=== PATIENT | male | born 1960 | race Caucasian/White ===

== ENCOUNTER 2016-05-15 07:04 | Day surgery (SDC) | payer BC ==
[~2016-05-15 07:04] MED LIST: Lactated Ringers 1,000 ML IV SCH; Lidocaine 1%/Sod Bicarbonate in NS 8.4% 1 ML Syringe IV PRN; Sodium Chloride 0.9% 10 ML Syringe FLUSH PRN
--- NOTE | 2016-05-15 07:20 | PCM.PREANE ---
Preanesthetic Assessment - Anesthesia/Transfusion/Family Hx Anesthesia History: Prior Anesthesia Without Reaction Family History of Anesthesia Reaction: No - Review of Systems General: Other (congestion last week ) Pulmonary: No Symptoms Cardiovascular: No Symptoms Gastrointestinal: No symptoms Neurological: No Symptoms Other: Reports: None - Physical Assessment NPO Status Date: 05/14/16 NPO Status Time: 22:00 Pulse: 67 O2 Sat by Pulse Oximetry: 99 Respiratory Rate: 16 Blood Pressure: 131/87 Temperature: 97.8 C Height: 1.8 m Weight: 77.111 kg ASA Class: 2 Mental Status: Alert & Oriented x3 Airway Class: Mallampati = 2 Dentition: Reports: Normal Dentition Thyro-Mental Finger Breadths: 3 Mouth Opening Finger Breadths: 5 ROM/Head Extension: Full Lungs: Clear to auscultation, Normal respiratory effort Cardiovascular: Regular Rate, Regular Rhythm - Allergies Allergies/Adverse Reactions: Allergies Allergy/AdvReac Type Severity Reaction Status Date / Time No Known Allergies Allergy Verified 05/12/16 11:00 - Blood Blood Available: No - Acknowledgements Anesthesia Type Planned: MAC Pt an Appropriate Candidate for the Planned Anesthesia: Yes Alternatives and Risks of Anesthesia Discussed w Pt/Guardian: Yes Pt/Guardian Understands and Agrees with Anesthesia Plan: Yes PreAnesthesia Questionnaire HEENT History: Reports: Impaired vision Cardiovascular History: Reports: None Respiratory History: Reports: None Genitourinary History: Reports: None PRIMARY CARE PROVIDER History: Reports: None Musculoskeletal History: Reports: Arthritis Neurological History: Reports: None Psychiatric History: Reports: None Endocrine/Metabolic History: Reports: None Hematologic History: Reports: Other (see below) Other Hematologic History: elevated bilirubin, elevated hemoglobin, elevated LDL Immunologic History: Reports: None Oncologic (Cancer) History: Reports: None Dermatologic History: Reports: None - Past Surgical History Head Surgeries/Procedures: Reports: None GI Surgical History: Reports: Cholecystectomy Musculoskeletal Surgical History: Reports: Arthroscopic knee - SUBSTANCE USE Smoking Status *Q: Current Every Day Smoker Tobacco Use Within Last Twelve Months: Snuff/Dip (everyday) Recreational Drug Use History: No - HOME MEDS Home Medications: Home Meds Cetirizine [ZyrTEC] 10 mg PO DAILY PRN 05/12/16 [History] Ibuprofen 200 - 600 mg PO TID PRN 05/12/16 [History] - CURRENT (IN HOUSE) MEDS Current Meds: Current Medications Lactated Ringer's (Ringers, Lactated) 1,000 mls @ 125 mls/hr IV ASDIRECTED SANDRA Stop: 05/15/16 23:00 Lidocaine/Sodium Bicarbonate (Buffered Lidocaine 1% In Ns 8.4%) 0.25 ml IV ONETIME PRN PRN Reason: Prior to IV Start Stop: 05/15/16 18:00 Sodium Chloride (Saline Flush) 10 ml FLUSH ASDIRECTED PRN PRN Reason: Keep Vein Open Stop: 05/15/16 18:00 Preanesthetic Assessment - PHYSICAL ASSESSMENT Height: 1.8 m Weight: 77.111 kg - ALLERGIES Allergies/Adverse Reactions: Allergies Allergy/AdvReac Type Severity Reaction Status Date / Time No Known Allergies Allergy Verified 05/12/16 11:00
[2016-05-15] MEDS ORDERED: Propofol 200 MG/20 ML SDV ONE ×2 (07:52→08:46)
[2016-05-15] MEDS ORDERED: Lidocaine 1% 4 ML ONE (07:53)
--- NOTE | 2016-05-15 08:41 | PCM.OPNOTE ---
- General Post-Op/Procedure Note Date of Surgery/Procedure: 05/15/16 Operative Procedure(s): colonoscopy Findings: 1. posterior anal fissure 2. sigmoid diverticulosis Pre Op Diagnosis: screening Post-Op Diagnosis: 1. posterior anal fissure. 2. sigmoid diverticulosis Anesthesia Technique: MAC, Moderate sedation Primary Surgeon: Hang Agrawal Pathology: none EBL in mLs: 0 Complications: None Condition: Good Free Text/Narrative:: After adequate IV sedation and analgesia was obtained the patient was placed on his left side. 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 Digital rectal examination was unremarkable. Sphincter tone was not too tight. The prostate was grossly normal. A lubricated colonoscope was inserted into the rectum and advanced to the cecum without difficulty. The bowel preparation was excellent. The cecum, right colon, transverse, and descending colons were endoscopically normal with no mass, lesions or inflammatory changes seen. The sigmoid had a few small uncomplicated diverticula. The rectum in both views was unremarkable. Coffee Roaster Helper photographs were taken for the patient and for the record. Air was removed, as I finished the procedure, which he tolerated well. There were no complications.
--- NOTE | 2016-05-15 08:46 | PCM48HPAN ---
Post Anesthesia Note - EVALUATION WITHIN 48HRS OF ANESTHETIC Vital Signs in Normal Range: Yes Patient Participated in Evaluation: Yes Respiratory Function Stable: Yes Airway Patent: Yes Cardiovascular Function Stable: Yes Hydration Status Stable: Yes Pain Control Satisfactory: Yes Nausea and Vomiting Control Satisfactory: Yes Mental Status Recovered: Yes - COMMENTS/OBSERVATIONS Free Text/Narrative:: Uneventful MAC anesthetic
[2016-05-15 09:08] VITALS: BP 116/81
== END 2016-05-15 09:31 | disposition home or self-care (01) ==
LOC: JD.SDS 07:04
PROVIDERS: ATTEND Surgery
DX: Z12.11 Encounter for screening for malignant neoplasm of colon (principal); K57.30 Diverticulosis of large intestine without perforation or abscess without bleeding; Z68.27 Body mass index [BMI] 27.0-27.9, adult; R17 Unspecified jaundice; D58.2 Other hemoglobinopathies; E78.00 Pure hypercholesterolemia, unspecified; Z79.899 Other long term (current) drug therapy; Z96.659 Presence of unspecified artificial knee joint; Z98.890 Other specified postprocedural states; Z72.0 Tobacco use
CPT/HCPCS: 45378; J7120; 00810; J2704

== ENCOUNTER 2016-09-20 08:34 | Day surgery (SDC) | payer BC ==
[~2016-09-20 08:34] MED LIST changes: -Lidocaine 1%/Sod Bicarbonate in NS 8.4% 1 ML Syringe IV PRN; +Lidocaine 1%/Sod Bicarbonate in NS 8.4% 1 ML Syringe PRN
--- NOTE | 2016-09-20 09:37 | PCM.PREANE ---
Preanesthetic Assessment - Anesthesia/Transfusion/Family Hx Anesthesia History: Prior Anesthesia Without Reaction Family History of Anesthesia Reaction: No Intubation History: Unknown - Review of Systems General: No Symptoms Pulmonary: No Symptoms Cardiovascular: No Symptoms Gastrointestinal: No Symptoms Neurological: No Symptoms Other: Reports: None - Physical Assessment NPO Status Date: 09/19/16 NPO Status Time: 18:00 O2 Sat by Pulse Oximetry: 99 Respiratory Rate: 16 Vital Signs: Last Vital Signs Temp 36.3 C 09/20/16 08:45 Pulse 60 09/20/16 08:45 Resp 16 09/20/16 08:45 BP 121/88 09/20/16 08:45 Pulse Ox 99 09/20/16 08:45 Height: 1.78 m Weight: 80.739 kg ASA Class: 2 Mental Status: Alert & Oriented x3 Dentition: Reports: Normal Dentition Thyro-Mental Finger Breadths: 3 Mouth Opening Finger Breadths: 3 ROM/Head Extension: Full Lungs: Clear to Auscultation, Normal Respiratory Effort Cardiovascular: Regular Rate, Regular Rhythm - Allergies Allergies/Adverse Reactions: Allergies Allergy/AdvReac Type Severity Reaction Status Date / Time No Known Allergies Allergy Verified 09/19/16 15:22 - Acknowledgements Anesthesia Type Planned: General Anesthesia Pt an Appropriate Candidate for the Planned Anesthesia: Yes Alternatives and Risks of Anesthesia Discussed w Pt/Guardian: Yes Pt/Guardian Understands and Agrees with Anesthesia Plan: Yes PreAnesthesia Questionnaire HEENT History: Reports: Impaired Vision Cardiovascular History: Reports: None, High Cholesterol Respiratory History: Reports: None Gastrointestinal History: Reports: Other (See Below) Other Gastrointestinal History: increased bilirubin, inguinal hernia Genitourinary History: Reports: None JOB HONER History: Reports: None Musculoskeletal History: Reports: Arthritis Neurological History: Reports: None Psychiatric History: Reports: None Endocrine/Metabolic History: Reports: None Hematologic History: Reports: Other (See Below) Other Hematologic History: elevated bilirubin, elevated hemoglobin, elevated LDL Immunologic History: Reports: None Oncologic (Cancer) History: Reports: None Dermatologic History: Reports: None - Past Surgical History Head Surgeries/Procedures: Reports: None Cardiovascular Surgical History: Reports: None Respiratory Surgical History: Reports: None GI Surgical History: Reports: Cholecystectomy Female Surgical History: Reports: None Male Surgical History: Reports: None Endocrine Surgical History: Reports: None Neurological Surgical History: Reports: None Musculoskeletal Surgical History: Reports: Arthroscopic Knee, Other (See Below) Other Musculoskeletal Surgeries/Procedures:: R knee reconstruction, artificial joint in R thumb - SUBSTANCE USE Smoking Status *Q: Current Every Day Smoker Tobacco Use Within Last Twelve Months: Snuff/Dip Recreational Drug Use History: No - HOME MEDS Home Medications: Home Meds Cetirizine [ZyrTEC] 10 mg PO DAILY PRN 05/12/16 [History] Ibuprofen 200 - 600 mg PO TID PRN 05/12/16 [History] Rosuvastatin Calcium 20 mg PO BEDTIME 09/19/16 [History] - CURRENT (IN HOUSE) MEDS Current Meds: Current Medications Lactated Ringer's (Ringers, Lactated) 1,000 mls @ 125 mls/hr IV ASDIRECTED SANDRA Stop: 09/20/16 23:00 Last Admin: 09/20/16 08:50 Dose: 125 mls/hr Lidocaine/Sodium Bicarbonate (Buffered Lidocaine 1% In Ns 8.4%) 0.25 ml .XX ONETIME PRN PRN Reason: Prior to IV Start Stop: 09/20/16 18:00 Last Admin: 09/20/16 08:50 Dose: 0.25 ml Sodium Chloride (Saline Flush) 10 ml FLUSH ASDIRECTED PRN PRN Reason: Keep Vein Open Stop: 09/20/16 18:00
[2016-09-20] MEDS ORDERED: Propofol 200 MG/20 ML SDV ONE ×2 (09:50→10:15)
[2016-09-20] MEDS ORDERED: fentaNYL 250 MCG/5 ML SDV ONE (09:51)
[2016-09-20] MEDS ORDERED: Midazolam 1 MG/ML 2 ML SDV ONE (09:51)
[2016-09-20] MEDS ORDERED: Dexamethasone 4 MG/ML 5 ML MDV ONE (09:52)
[2016-09-20] MEDS ORDERED: Lidocaine 1% 4 ML ONE (09:52)
[2016-09-20] MEDS ORDERED: Ondansetron 4 MG/2 ML SDV ONE (09:52)
[2016-09-20] MEDS ORDERED: ceFAZolin 1 GM Vial ONE (09:54)
--- NOTE | 2016-09-20 10:23 | PCM.OPNOTE ---
- General Post-Op/Procedure Note Date of Surgery/Procedure: 09/20/16 Operative Procedure(s): open supra umbilical hernia repair with mesh Findings: 2 cm defect containing incarcerated preperitoneal fat Pre Op Diagnosis: symptomatic supraumbilical hernia Post-Op Diagnosis: same Anesthesia Technique: General LMA, Local Primary Surgeon: Hang Agrawal Pathology: none EBL in mLs: 2 Complications: None Condition: Good Free Text/Narrative:: After adequate LMA general anesthesia was obtained the patient's abdomen was prepped and draped sterilely for the procedure. A midline 5 cm incision was made through the skin after local analgesia was given into the subcutaneous tissues. Metzenbaum scissors were used to dissect the incarcerated and herniated preperitoneal fat away from surrounding tissues down to the fascia level. The hernia sac was from the fascial level sharply and removed. The preperitoneal fat was reduced into the abdomen. The defect was measured to be 2 cm in diameter. I used my index finger to palpate the umbilical site inferior to the hernia defect and there was no associated umbilical hernia. A 4 cm mesh was placed in the defect and the fascia was closed over the mesh with interrupted 0 Ethibond sutures. A irrigated out the feel with saline. I closed the subcutaneous layer with a running 3-0 Vicryl suture. The skin was closed with 4-0 subcuticular Vicryl suture. Steri-Strips and gauze were used for the dressing. Blood loss was minimal and there were no complications.
[2016-09-20] MEDS: Bupivacaine 0.5%/EPINEPHrine 1:200,000 50 ML MDV ONE ×2 (10:43→10:59)
[2016-09-20] MEDS: Lidocaine 1% with EPINEPHrine 1:100,000 20 ML MDV ONE ×2 (10:43→10:59)
[2016-09-20] MEDS ORDERED: Ketorolac 30 MG/ML SDV ONE (11:40)
--- NOTE | 2016-09-20 12:53 | PCM.POSTAN ---
POST ANESTHESIA ASSESSMENT - MENTAL STATUS Mental Status: Alert - VITAL SIGNS Pulse Rate: 85 SaO2: 95 Resp Rate: 16 Blood Pressure: 115/79 Temperature: 36.6 C - RESPIRATORY Respiratory Status: Respiratory Rate WNL, Airway Patent, O2 Saturation Stable - CARDIOVASCULAR CV Status: Pulse Rate WNL, Blood Pressure Stable - GASTROINTESTINAL GI Status: No Symptoms - PAIN Pain Score: 0 - POST OP HYDRATION Hydration Status: Adequate & Stable
[2016-09-20] MEDS: fentaNYL 100 MCG/2 ML SDV IVPUSH PRN ×2 (12:58→13:05)
[2016-09-20] MEDS ORDERED: Acetaminophen/Codeine 300-30 MG Tab PO PRN (13:07)
[2016-09-20] MEDS ORDERED: HYDROmorphone 0.5 MG/0.5 ML Syringe IVPUSH PRN (13:09)
[2016-09-20 13:33] VITALS: BP 112/87
[2016-09-20] MEDS ORDERED: ePHEDrine 50 MG/ML SDV ONE (13:42)
--- NOTE | 2016-09-21 11:53 | PCM48HPAN ---
Post Anesthesia Note - EVALUATION WITHIN 48HRS OF ANESTHETIC Vital Signs in Normal Range: Yes Patient Participated in Evaluation: Yes Respiratory Function Stable: Yes Airway Patent: Yes Cardiovascular Function Stable: Yes Hydration Status Stable: Yes Pain Control Satisfactory: Yes Nausea and Vomiting Control Satisfactory: Yes Mental Status Recovered: Yes - COMMENTS/OBSERVATIONS Free Text/Narrative:: Patient verbalizing comfort, awake, thankful for good care. No apparent complications from the anesthetic.
== END 2016-09-20 14:10 | disposition home or self-care (01) ==
LOC: JD.SDS 08:34
PROVIDERS: ATTEND Surgery
PROC: 0WUF0JZ Supplement Abdominal Wall with Synthetic Substitute, Open Approach (ICD-10-PCS; principal; 2016-09-20)
DX: K43.6 Other and unspecified ventral hernia with obstruction, without gangrene (principal); E78.00 Pure hypercholesterolemia, unspecified; M19.90 Unspecified osteoarthritis, unspecified site; F17.200 Nicotine dependence, unspecified, uncomplicated; Z96.659 Presence of unspecified artificial knee joint; Z90.49 Acquired absence of other specified parts of digestive tract; Z98.890 Other specified postprocedural states; Z79.899 Other long term (current) drug therapy
CPT/HCPCS: 49587; A9270; C1781; J0690; J1100; J1170; J1885; J2250; J2405; J3010; J7120; 00830; J2704

== ENCOUNTER 2016-09-22 06:21 | Emergency (ER) | payer BC ==
[2016-09-22 06:30] VITALS: BP 143/98
--- NOTE | 2016-09-22 06:54 | EDM.PDOC ---
ED HPI GENERAL MEDICAL PROBLEM - General Chief Complaint: Genitourinary Problem Stated Complaint: BLEEDING/PAIN Time Seen by Provider: 09/22/16 06:30 Source of Information: Reports: Patient, Family (), RN Notes Reviewed History Limitations: Reports: No Limitations - History of Present Illness INITIAL COMMENTS - FREE TEXT/NARRATIVE: The patient states that he underwent an open left inguinal herniorrhaphy per Dr. Agrawal 2 days ago, 09/20/2016. The patient states that he was doing well until last night, when he developed increasing swelling and pain. It is worse this morning, the patient noticed that the left side of his scrotum is ecchymotic. No recent fever. No dysuria. The patient's last oral solid food was at 18:00 last night, and his last oral liquid intake was around 06:00 this morning, when he took his pills. Left Groin Pain Score (Numeric/FACES): 10 - Related Data Allergies Allergy/AdvReac Type Severity Reaction Status Date / Time No Known Allergies Allergy Verified 09/22/16 06:31 Home Meds: Home Meds Cetirizine [ZyrTEC] 10 mg PO DAILY PRN 05/12/16 [History] Rosuvastatin Calcium 20 mg PO DAILY 09/19/16 [History] oxyCODONE HCl/Acetaminophen [Percocet 5-325 mg Tablet] 1 - 2 tab PO Q6H PRN #20 tablet 09/22/16 [Rx] Past Medical History HEENT History: Reports: Allergic Rhinitis, Impaired Vision Cardiovascular History: Reports: High Cholesterol Musculoskeletal History: Reports: Arthritis - Past Surgical History GI Surgical History: Reports: Cholecystectomy, Hernia, Inguinal (right, as a child, left 09/20/2016) Musculoskeletal Surgical History: Reports: Other (See Below) (Right knee reconstruction x 2. Right thumb repair) Social & Family History - Tobacco Use Smoking Status *Q: Never Smoker Packs/Tins Daily Comment: Chews 1/2 tin tobacco per day Second Hand Smoke Exposure: No - Caffeine Use Caffeine Use: Reports: None - Alcohol Use Alcohol Use History: Yes Alcohol Use Frequency: Socially - Recreational Drug Use Recreational Drug Use: No - Living Situation & Occupation Living situation: Reports: , with Spouse, with Family (Daughter) Occupation: Employed ([employer]) ED ROS GENERAL - Review of Systems Review Of Systems: See Below Constitutional: Reports: No Symptoms HEENT: Reports: No Symptoms Respiratory: Reports: No Symptoms Cardiovascular: Reports: No Symptoms Endocrine: Reports: No Symptoms GI/Abdominal: Reports: No Symptoms : Reports: Other (Prostatitis about 2 weeks ago) Musculoskeletal: Reports: No Symptoms Skin: Reports: No Symptoms Neurological: Reports: No Symptoms Psychiatric: Reports: No Symptoms Hematologic/Lymphatic: Reports: No Symptoms Immunologic: Reports: No Symptoms ED EXAM, GENERAL - Physical Exam Exam: See Below Exam Limited By: No Limitations General Appearance: Alert, WD/WN, Mild Distress (appears uncomfortable) GI/Abdominal: Normal Bowel Sounds, Soft, No Organomegaly, No Distention, No Abnormal Bruit, No Mass, Other (Mild swelling and mild ecchymosis to a left inguinal surgical site. Steri-Strips are still in place. No visible bleeding. Site is tender to palpation.) (Male) Exam: Circumcised, Other (Ecchymosis primarily to the left scrotum. Tenderness to palpation of the scrotum, left > right.) Rectal (Males) Exam: Deferred Course - Vital Signs Last Recorded V/S: Last Vital Signs Temp 36.1 C 09/22/16 06:24 Pulse 60 09/22/16 06:24 Resp 18 09/22/16 06:24 BP 143/98 H 09/22/16 06:24 Pulse Ox 99 09/22/16 06:24 - Re-Assessments/Exams Free Text/Narrative Re-Assessment/Exam: 09/22/16 06:[address] Agrawal at 06:44. He states that the swelling, ecchymosis, and pain that the patient is experiencing is to be expected, and that he informed the patient of that. He suspects that the patient had some bleeding into the wound which is what is driving the current symptoms. He is recommending that I reassure the patient and have him rest and elevate and ice the area. The patient is currently scheduled to follow-up with Dr. Agrawal on , 09/28/2016 - he can move that up to 09/26/[address] Agrawal stated that he will call the patient today to check on him. 09/22/16 06:57 Dr. Agrawal called back. He will come by the ED in 5-10 minutes to check the patient himself. 09/22/16 07:16 The patient was evaluated by Dr. Agrawal. We will discharge the patient home with a prescription for Percocet, and the patient will follow-up with Dr. Agrawal on 09/26/2016. Departure - Departure Time of Disposition: 07:17 Disposition: Home, Self-Care 01 Condition: Good Clinical Impression: Acute postoperative pain of left groin - Discharge Information Prescriptions: oxyCODONE HCl/Acetaminophen [Percocet 5-325 mg Tablet] 1 - 2 tab PO Q6H PRN #20 tablet PRN Reason: Pain (Severe 7-10) Referrals: Hang Agrawal MD [Primary Care Provider] - Forms: ED Department Discharge Additional Instructions: You were seen in the emergency room after developing increasing pain and swelling to your left inguinal hernia surgery site. You were evaluated by Dr. Agrawal in the ER. He feels that the pain and swelling is do to some bleeding into the surgical wound. He is recommending that you take it easy, and ice the area frequently. You have been prescribed the pain medicine Percocet. Take 1-2 tablets up to every 4-6 hours as needed for pain. If you take Percocet, DO NOT also take your previously prescribed Tylenol 3. If you take Percocet, do not drive or operate heavy machinery for 12 hours afterwards. Percocet may constipate, so consider taking a stool softener. Follow-up with Dr. Agrawal this coming 09/26/2016. If any other problems, please do not hesitate to return to the ER.
== END 2016-09-22 07:33 | disposition home or self-care (01) ==
LOC: JD.ED 06:21
DX: G89.18 Other acute postprocedural pain (principal); R10.32 Left lower quadrant pain; Z98.890 Other specified postprocedural states; E78.00 Pure hypercholesterolemia, unspecified; M19.90 Unspecified osteoarthritis, unspecified site; Z90.49 Acquired absence of other specified parts of digestive tract; Z79.899 Other long term (current) drug therapy
CPT/HCPCS: 99283; 99284

== ENCOUNTER 2016-09-29 07:57 | Day surgery (SDC) | payer BC ==
[~2016-09-29 07:57] MED LIST changes: +Lidocaine 1% 4 ML ONE; +Lidocaine 1%/Sod Bicarbonate in NS 8.4% 1 ML Syringe IV PRN; -Lidocaine 1%/Sod Bicarbonate in NS 8.4% 1 ML Syringe PRN; +Propofol 200 MG/20 ML SDV ONE; +fentaNYL 250 MCG/5 ML SDV ONE
[2016-09-29] MEDS ORDERED: Lidocaine 1% with EPINEPHrine 1:100,000 20 ML MDV ONE (08:11)
--- NOTE | 2016-09-29 08:21 | PCM.PREANE ---
Preanesthetic Assessment - Anesthesia/Transfusion/Family Hx Anesthesia History: Prior Anesthesia Without Reaction Family History of Anesthesia Reaction: No Transfusion History: No Prior Transfusion(s) Intubation History: Unknown - Review of Systems General: No Symptoms Pulmonary: No Symptoms Cardiovascular: No Symptoms Gastrointestinal: No Symptoms Neurological: No Symptoms Other: Reports: None - Physical Assessment NPO Status Date: 09/29/16 NPO Status Time: 18:30 Pulse: 77 O2 Sat by Pulse Oximetry: 96 Respiratory Rate: 16 Blood Pressure: 115/85 Temperature: 36.4 C Height: 1.78 m Weight: 79.379 kg ASA Class: 2 Mental Status: Alert & Oriented x3 Dentition: Reports: Normal Dentition Thyro-Mental Finger Breadths: 3 Mouth Opening Finger Breadths: 5 ROM/Head Extension: Full Lungs: Clear to Auscultation, Normal Respiratory Effort Cardiovascular: Regular Rate, Regular Rhythm - Allergies Allergies/Adverse Reactions: Allergies Allergy/AdvReac Type Severity Reaction Status Date / Time No Known Allergies Allergy Verified 09/22/16 06:31 - Blood Blood Available: No - Anesthesia Plan Pre-Op Medication Ordered: None - Acknowledgements Anesthesia Type Planned: General Anesthesia Pt an Appropriate Candidate for the Planned Anesthesia: Yes Alternatives and Risks of Anesthesia Discussed w Pt/Guardian: Yes Pt/Guardian Understands and Agrees with Anesthesia Plan: Yes PreAnesthesia Questionnaire HEENT History: Reports: Allergic Rhinitis, Impaired Vision Cardiovascular History: Reports: High Cholesterol Respiratory History: Reports: None Gastrointestinal History: Reports: Other (See Below) Other Gastrointestinal History: increased bilirubin, Genitourinary History: Reports: None, Other (See Below) Other Genitourinary History: prostatitis INSPECTOR TUBES History: Reports: None Musculoskeletal History: Reports: Arthritis Neurological History: Reports: None Psychiatric History: Reports: None Endocrine/Metabolic History: Reports: None Hematologic History: Reports: Other (See Below) Other Hematologic History: elevated bilirubin, elevated hemoglobin, elevated LDL Immunologic History: Reports: None Oncologic (Cancer) History: Reports: None Dermatologic History: Reports: None - Past Surgical History GI Surgical History: Reports: Cholecystectomy, Hernia, Inguinal (right, as a child, left 09/20/2016) Musculoskeletal Surgical History: Reports: Other (See Below) (Right knee reconstruction x 2. Right thumb repair) - SUBSTANCE USE Smoking Status *Q: Never Smoker Tobacco Use Within Last Twelve Months: Cigars Second Hand Smoke Exposure: No Recreational Drug Use History: No - HOME MEDS Home Medications: Home Meds Cetirizine [ZyrTEC] 10 mg PO DAILY PRN 05/12/16 [History] Rosuvastatin Calcium 20 mg PO DAILY 09/19/16 [History] oxyCODONE HCl/Acetaminophen [Percocet 5-325 mg Tablet] 1 - 2 tab PO Q6H PRN #20 tablet 09/22/16 [Rx] - CURRENT (IN HOUSE) MEDS Current Meds: Current Medications Lactated Ringer's (Ringers, Lactated) 1,000 mls @ 125 mls/hr IV ASDIRECTED SANDRA Lidocaine/Sodium Bicarbonate (Buffered Lidocaine 1% In Ns 8.4%) 0.25 ml IV ONETIME PRN PRN Reason: Prior to IV Start Sodium Chloride (Saline Flush) 10 ml FLUSH ASDIRECTED PRN PRN Reason: Keep Vein Open Discontinued Medications Fentanyl (Sublimaze) Confirm Administered Dose 250 mcg .ROUTE .STK-MED ONE Stop: 09/29/16 07:57 Lidocaine HCl (Xylocaine-Mpf 1%) Confirm Administered Dose 4 mls @ as directed .ROUTE .STK-MED ONE Stop: 09/29/16 07:55 Propofol (Diprivan 20 Ml) Confirm Administered Dose 200 mg .ROUTE .STK-MED ONE Stop: 09/29/16 07:56
[2016-09-29] MEDS ORDERED: Midazolam 1 MG/ML 2 ML SDV ONE (09:16)
[2016-09-29] MEDS: Bupivacaine 0.5%/EPINEPHrine 1:200,000 50 ML MDV ONE ×2 (09:16→09:54)
[2016-09-29] MEDS ORDERED: ceFAZolin 1 GM Vial ONE (09:23)
[2016-09-29] MEDS ORDERED: Dexamethasone 4 MG/ML 5 ML MDV ONE (09:26)
[2016-09-29] MEDS ORDERED: Ondansetron 4 MG/2 ML SDV ONE (09:26)
[2016-09-29] MEDS ORDERED: Lactated Ringers 1,000 ML ONE (09:34)
[2016-09-29] MEDS ORDERED: Ketamine 500 mg/10 ML MDV ONE (09:41)
--- NOTE | 2016-09-29 10:22 | PCM.POSTAN ---
POST ANESTHESIA ASSESSMENT - VITAL SIGNS Pulse Rate: 87 SaO2: 99 Resp Rate: 17 Blood Pressure: 134/96 Temperature: 98.5 C - RESPIRATORY Respiratory Status: Respiratory Rate WNL, Airway Patent, O2 Saturation Stable - CARDIOVASCULAR CV Status: Pulse Rate WNL, Blood Pressure Stable - GASTROINTESTINAL GI Status: No Symptoms - PAIN Pain Score: 0 - POST OP HYDRATION Hydration Status: Adequate & Stable
[2016-09-29] MEDS ORDERED: Meperidine PF 50 MG/ML Syringe IVPUSH PRN (10:25)
[2016-09-29] MEDS ORDERED: Ondansetron 4 MG/2 ML SDV IVPUSH PRN (10:25)
[2016-09-29] MEDS ORDERED: diphenhydrAMINE 50 MG/ML SDV IVPUSH PRN (10:25)
[2016-09-29] MEDS ORDERED: fentaNYL 100 MCG/2 ML SDV IVPUSH PRN (10:25)
[2016-09-29] MEDS ORDERED: HYDROmorphone 0.5 MG/0.5 ML Syringe IVPUSH PRN (10:45)
--- NOTE | 2016-09-29 11:37 | PCM.OPNOTE ---
- General Post-Op/Procedure Note Date of Surgery/Procedure: 09/29/16 Operative Procedure(s): Exploration of left groin of the left groin for possible groin hematoma Findings: Subacute inflammatory changes and no hematoma Pre Op Diagnosis: Acute pain syndrome possible hematoma by ultrasound Post-Op Diagnosis: Same Anesthesia Technique: General LMA, Local Primary Surgeon: Hang Agrawal Pathology: None EBL in mLs: 4 Complications: None Condition: Good Free Text/Narrative:: Intake & Output 09/28/16 09/29/16 09/29/16 22:59 06:59 14:59 Intake Total 225 Balance 225 After adequate LMA general anesthesia the patient's left groin was prepped and draped sterilely for the procedure. A 15 blade was used to reopen the previous inguinal hernia repair incision through the skin and subcutaneous tissues down to the fascia of the external oblique. This structure was reopened in direction of its fibers exposing the spermatic cord. There was edema of the cord. There is some ecchymotic areas around the cord. There was no clot. There was no purulence. There were no seroma collections. I opened the cremaster with scissors obtaining hemostasis with cautery. I irrigated out the field. Spermatic cord branch veins were ligated with 5-0 Vicryl suture. The repair was intact with no migration of the plug. I infiltrated Marcaine with epinephrine subfascially and within the subcutaneous tissues. I didn't reclose the cremaster. I also didn't reclose the fascia of the external oblique. I closed the Ming's fascia layer with a running Vicryl suture. The skin was closed with 4-0 Vicryl subcuticular. Mastisol and Steri-Strips along with gauze were used for the dressing. There were no procedural complications.
[2016-09-29 11:43] VITALS: BP 135/82
--- NOTE | 2016-09-29 13:52 | PCM48HPAN ---
Post Anesthesia Note - EVALUATION WITHIN 48HRS OF ANESTHETIC Vital Signs in Normal Range: Yes Patient Participated in Evaluation: Yes Respiratory Function Stable: Yes Airway Patent: Yes Cardiovascular Function Stable: Yes Hydration Status Stable: Yes Pain Control Satisfactory: Yes Nausea and Vomiting Control Satisfactory: Yes Mental Status Recovered: Yes
== END 2016-09-29 11:48 | disposition home or self-care (01) ==
LOC: JD.SDS 07:57
PROVIDERS: ATTEND Surgery
DX: N50.89 Other specified disorders of the male genital organs (principal); E78.00 Pure hypercholesterolemia, unspecified; M19.90 Unspecified osteoarthritis, unspecified site; Z90.49 Acquired absence of other specified parts of digestive tract; Z98.890 Other specified postprocedural states; Z79.899 Other long term (current) drug therapy
CPT/HCPCS: 49999; J0690; J1100; J1170; J2250; J2405; J3010; J7120; 00400; J2704

== ENCOUNTER 2018-08-13 09:39 | Emergency (ER) | payer BC ==
[2018-08-13 09:55] VITALS: BP 129/97
[2018-08-13] MEDS ORDERED: Acetaminophen 325 MG Tab PO ONE (10:01)
[2018-08-13] MEDS: Sodium Chloride 0.9% 10 ML Syringe FLUSH PRN ×2 (10:13→11:40)
[2018-08-13] MEDS ORDERED: HYDROmorphone 1 MG/ML Syringe IVPUSH ONE (10:28)
--- NOTE | 2018-08-13 10:38 | CR ---
Chest: Portable view of the chest was obtained. Comparison: Prior chest x-ray of 11/01/09. Heart size and mediastinum are within normal limits. Lungs are clear with no acute parenchymal change. Bony structures are grossly intact. Impression: 1. Nothing acute is seen on portable chest x-ray. Diagnostic code #1
[2018-08-13] MEDS ORDERED: LORazepam 2 MG/ML SDV IVPUSH ONE (11:12)
[2018-08-13] MEDS ORDERED: Sodium Chloride 0.9% 1,000 ML IV SCH ×2 (11:30→13:00)
[2018-08-13] MEDS ORDERED: Sodium Chloride 0.9% 10 ML Syringe FLUSH ONE (11:39)
[2018-08-13] MEDS ORDERED: Iopamidol 755 Mg/ML 100 ML Bottle IVPUSH ONE (11:39)
[2018-08-13] MEDS ORDERED: Sodium Chloride 0.9% 100 ML IV SCH (11:45)
--- NOTE | 2018-08-13 12:35 | CT ---
CT chest Technique: Multiple axial sections were obtained through the chest. Intravenous contrast was utilized. Study has been performed as a pulmonary angiogram protocol. Findings: Pulmonary arteries are well opacified. No filling defects are seen to indicate pulmonary embolism. Aorta shows no aneurysm or dissection. Mediastinum and hilar regions show no adenopathy or mass. No pericardial thickening is seen. Surgical clips are seen from prior cholecystectomy. Other portions of the visualized upper abdominal structures appear within normal limits. Lung window settings were reviewed which show mild dependent atelectasis. No acute parenchymal change is seen within either lung. Bone window settings were reviewed which show slight degenerative change within the spine. No acute osseous abnormality is appreciated. Impression: 1. No findings of pulmonary embolism. Nothing acute is seen on CT study of the chest. Diagnostic code #1
--- NOTE | 2018-08-13 14:12 | EDM.PDOC ---
ED HPI GENERAL MEDICAL PROBLEM - General Chief Complaint: Chest Pain Stated Complaint: CHEST PAIN Time Seen by Provider: 08/13/18 09:47 Source of Information: Reports: Patient, RN Notes Reviewed - History of Present Illness INITIAL COMMENTS - FREE TEXT/NARRATIVE: 57-year-old male comes in with severe left chest pain. The onset of this was about 45 minutes prior to arrival. It is a sharp ache left chest without radiation. He does not feel short of breath. the pain is slightly worse with deep breathing. He has had no recent cough fever or chills. He was feeling fine earlier this morning. He has had a lot of stomach problems this past couple of weeks. Zantac for "acid indigestion" to taking a lot of Tums as well. No nausea or vomiting this morning. There is no radiaiton of pain to his back. He does not have history for hypertension diabetes or known coronary artery disease. He does not smoke. He does some lifting at work. Left Chest Pain Score (Numeric/FACES): 7 - Related Data Allergies Allergy/AdvReac Type Severity Reaction Status Date / Time No Known Allergies Allergy Verified 08/13/18 09:54 Home Meds: Home Meds Cetirizine [ZyrTEC] 10 mg PO DAILY PRN 05/12/16 [History] Rosuvastatin Calcium 20 mg PO DAILY 09/19/16 [History] Omeprazole 40 mg PO ACBREAKFAST #30 cap.sr 08/13/18 [Rx] Past Medical History HEENT History: Reports: Allergic Rhinitis, Impaired Vision Cardiovascular History: Reports: High Cholesterol Respiratory History: Reports: None Gastrointestinal History: Reports: Other (See Below) Other Gastrointestinal History: increased bilirubin, Genitourinary History: Reports: None, Other (See Below) Other Genitourinary History: prostatitis 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 Musculoskeletal History: Reports: Arthritis Neurological History: Reports: None Psychiatric History: Reports: None Endocrine/Metabolic History: Reports: None Hematologic History: Reports: Other (See Below) Other Hematologic History: elevated bilirubin, elevated hemoglobin, elevated LDL Immunologic History: Reports: None Oncologic (Cancer) History: Reports: None Dermatologic History: Reports: None - Past Surgical History Head Surgeries/Procedures: Reports: None GI Surgical History: Reports: Cholecystectomy, Hernia, Inguinal Musculoskeletal Surgical History: Reports: Other (See Below) Social & Family History - Family History Cardiac: Reports: Aneurysm - Tobacco Use Smoking Status *Q: Never Smoker - Caffeine Use Caffeine Use: Reports: Soda - Recreational Drug Use Recreational Drug Use: No - Living Situation & Occupation Living situation: Reports: , with Spouse, with Family (Daughter) Occupation: Employed (Located within [facility]) ED ROS GENERAL - Review of Systems Review Of Systems: See Below Constitutional: Denies: Fever, Chills, Diaphoresis HEENT: Reports: No Symptoms Respiratory: Reports: Pleuritic Chest Pain (Slight). Denies: Shortness of Breath, Cough Cardiovascular: Reports: Chest Pain. Denies: Edema, Lightheadedness, Palpitations, Syncope GI/Abdominal: Reports: Abdominal Pain (Frequent upper midabdominal pain but none of that at this time). Denies: Nausea, Vomiting Musculoskeletal: Denies: Neck Pain, Shoulder Pain, Arm Pain, Back Pain Skin: Reports: No Symptoms Neurological: Denies: Numbness, Tingling, Trouble Speaking, Weakness ED EXAM, GENERAL - Physical Exam Exam: See Below General Appearance: Alert, Anxious, Moderate Distress Eye Exam: Bilateral Eye: PERRL Throat/Mouth: Normal Inspection Head: Atraumatic Neck: Supple Respiratory/Chest: No Respiratory Distress, Lungs Clear, Normal Breath Sounds, Chest Non-Tender. No: Rhonchi, Wheezing, Pleural Rub, Accessory Muscle Use, Retractions Cardiovascular: Regular Rate, Rhythm GI/Abdominal: Soft, Non-Tender. No: Guarding Back Exam: No: CVA Tenderness (L), CVA Tenderness (R) Extremities: Normal Inspection, Normal Range of Motion, Non-Tender Neurological: Alert, Oriented, No Motor/Sensory Deficits Skin Exam: Warm, Dry, Normal Color, No Rash EKG INTERPRETATION EKG Date: 08/13/18 Rhythm: NSR P-Wave: Present QRS: Normal ST-T: Normal Course - Vital Signs Last Recorded V/S: Last Vital Signs Temp 98.3 F 08/13/18 09:51 Pulse 78 08/13/18 09:51 Resp 12 08/13/18 09:51 BP 129/97 H 08/13/18 09:51 Pulse Ox 96 08/13/18 09:51 - Orders/Labs/Meds Labs: Laboratory Tests 08/13/18 08/13/18 08/13/18 Range/Units 09:48 09:48 09:48 WBC 5.38 (4.23-9.07) K/mm3 RBC 5.66 (4.63-6.08) M/mm3 Hgb 16.6 (13.7-17.5) gm/L Hct 47.9 (40.1-51.0) % MCV 84.6 (79.0-92.2) fl MCH 29.3 (25.7-32.2) pg MCHC 34.7 (32.2-35.5) g/dl RDW Std Deviation 41.8 (35.1-43.9) fL Plt Count 254 (163-337) K/mm3 MPV 9.0 L (9.4-12.3) fl Neut % (Auto) 63.2 (34.0-67.9) % Lymph % (Auto) 22.9 (21.8-53.1) % [place] % (Auto) 8.6 (5.3-12.2) % Eos % (Auto) 4.5 (0.8-7.0) Baso % (Auto) 0.4 (0.1-1.2) % Neut # (Auto) 3.41 (1.78-5.38) K/mm3 Lymph # (Auto) 1.23 L (1.32-3.57) K/mm3 [place] # (Auto) 0.46 (0.30-0.82) K/mm3 Eos # (Auto) 0.24 (0.04-0.54) K/mm3 Baso # (Auto) 0.02 (0.01-0.08) K/mm3 D-Dimer, Quantitative 0.27 (0.19-0.50) mg/L Sodium 140 (136-145) mEq/L Potassium 4.0 (3.5-5.1) mEq/L Chloride 105 (98-107) mEq/L Carbon Dioxide 23 (21-32) mEq/L Anion Gap 16.0 H (5-15) BUN 12 (7-18) mg/dL Creatinine 0.9 (0.7-1.3) mg/dL Est Cr Clr Drug Dosing 101.79 mL/min Estimated GFR (MDRD) > 60 (>60) mL/min BUN/Creatinine Ratio 13.3 L (14-18) Glucose 103 (74-106) mg/dL Calcium 8.7 (8.5-10.1) mg/dL Total Bilirubin 1.4 H (0.2-1.0) mg/dL AST 29 (15-37) U/L ALT 37 (16-63) U/L Alkaline Phosphatase 81 (46-116) U/L Troponin I < 0.017 (0.00-0.056) ng/mL Total Protein 6.5 (6.4-8.2) g/dl Albumin 3.9 (3.4-5.0) g/dl Globulin 2.6 gm/dL Albumin/Globulin Ratio 1.5 (1-2) 08/13/18 Range/Units 14:10 WBC (4.23-9.07) K/mm3 RBC (4.63-6.08) M/mm3 Hgb (13.7-17.5) gm/L Hct (40.1-51.0) % MCV (79.0-92.2) fl MCH (25.7-32.2) pg MCHC (32.2-35.5) g/dl RDW Std Deviation (35.1-43.9) fL Plt Count (163-337) K/mm3 MPV (9.4-12.3) fl Neut % (Auto) (34.0-67.9) % Lymph % (Auto) (21.8-53.1) % [place] % (Auto) (5.3-12.2) % Eos % (Auto) (0.8-7.0) Baso % (Auto) (0.1-1.2) % Neut # (Auto) (1.78-5.38) K/mm3 Lymph # (Auto) (1.32-3.57) K/mm3 [place] # (Auto) (0.30-0.82) K/mm3 Eos # (Auto) (0.04-0.54) K/mm3 Baso # (Auto) (0.01-0.08) K/mm3 D-Dimer, Quantitative (0.19-0.50) mg/L Sodium (136-145) mEq/L Potassium (3.5-5.1) mEq/L Chloride (98-107) mEq/L Carbon Dioxide (21-32) mEq/L Anion Gap (5-15) BUN (7-18) mg/dL Creatinine (0.7-1.3) mg/dL Est Cr Clr Drug Dosing mL/min Estimated GFR (MDRD) (>60) mL/min BUN/Creatinine Ratio (14-18) Glucose (74-106) mg/dL Calcium (8.5-10.1) mg/dL Total Bilirubin (0.2-1.0) mg/dL AST (15-37) U/L ALT (16-63) U/L Alkaline Phosphatase (46-116) U/L Troponin I < 0.017 (0.00-0.056) ng/mL Total Protein (6.4-8.2) g/dl Albumin (3.4-5.0) g/dl Globulin gm/dL Albumin/Globulin Ratio (1-2) Meds: Medications Discontinued Medications Generic Name Dose Route Start Last Admin Trade Name Freq PRN Reason Stop Dose Admin Acetaminophen 975 mg 08/13/18 10:01 08/13/18 10:13 Tylenol PO 08/13/18 10:02 975 mg NOW ONE Administration Hydromorphone HCl 1 mg 08/13/18 10:28 08/13/18 10:35 Dilaudid IVPUSH 08/13/18 10:29 1 mg ONETIME ONE Administration Sodium Chloride 1,000 mls @ 999 mls/hr 08/13/18 11:30 08/13/18 11:25 Normal Saline IV 999 mls/hr ONETIME SANDRA Administration Sodium Chloride 100 mls @ 60 mls/hr 08/13/18 11:45 08/13/18 11:40 Normal Saline IV 60 mls/hr ASDIRECTED SANDRA Administration Sodium Chloride 1,000 mls @ 150 mls/hr 08/13/18 13:00 08/13/18 13:01 Normal Saline IV 150 mls/hr ASDIRECTED SANDRA Administration Iopamidol 100 ml 08/13/18 11:39 08/13/18 11:40 Isovue-370 (76%) IVPUSH 08/13/18 11:40 100 ml ONETIME ONE Administration Lorazepam 1 mg 08/13/18 11:12 08/13/18 11:25 Ativan IVPUSH 08/13/18 11:13 1 mg ONETIME ONE Administration Sodium Chloride 10 ml 08/13/18 10:00 07/02/19 11:40 Saline Flush FLUSH 10 ml ASDIRECTED PRN Administration Keep Vein Open Sodium Chloride 10 ml 08/13/18 11:39 Saline Flush FLUSH 08/13/18 11:40 ONETIME ONE - Re-Assessments/Exams Free Text/Narrative Re-Assessment/Exam: 08/14/18 15:27. EKG, CXR was normal. Initial labs did come back normal including trop. and D Dimer. His pain worsened after arrival despite dilaudid IV, etiology of pain very unclear. CXR was also normal. Vitals, rythm, color, exam remained normal other than severe pain L lower ant. chest without radiation. Did order CTPA despite normal D Dimer due to severity of pain and etiolgy of pain not explainable. That did come back neg. as well. Did give ativan 1 mg IV and with that he did relax, get some good relief of the pain. Rythm, vitals remained normal, no ectopy. 3 or more hr repeat trop. also normal. Discharge instr. as documented. Departure - Departure Time of Disposition: 15:16 Disposition: Home, Self-Care 01 Condition: Fair Clinical Impression: Atypical chest pain GERD (gastroesophageal reflux disease) Qualifiers: Esophagitis presence: esophagitis presence not specified Qualified Code(s): K21.9 - Gastro-esophageal reflux disease without esophagitis Prescriptions: Omeprazole 40 mg PO ACBREAKFAST #30 cap.sr Instructions: Gastroesophageal Reflux Disease, Pediatric, Gastroesophageal Reflux Disease, Adult, [id number] Referrals: Falguni Gardiner MD [Primary Care Provider] - Forms: ED Department Discharge Additional Instructions: He may continue the Zantac once daily, resolve 40 mg daily in addition. Avoid spicy and fatty foods for now, Tylenol 1000 mg 2-3 times daily as needed for left anterior chest discomfort, alternate ice and heat as needed. See Dr. Gardiner this coming Sunday or early next week for recheck, return to ED as needed if symptoms worsening in any way.
== END 2018-08-13 15:41 | disposition home or self-care (01) ==
LOC: JD.ED 09:39
DX: K21.9 Gastro-esophageal reflux disease without esophagitis (principal); E78.00 Pure hypercholesterolemia, unspecified; Z79.899 Other long term (current) drug therapy
CPT/HCPCS: 36415; 71045; 71275; 80053; 84484; 85025; 85379; 93005; 96361; 96374; 96375; 99285; A9270; J1170; J2060; J7030; J7040; Q9967; 93010; 99284

== ENCOUNTER 2019-06-11 01:09 | Inpatient (IN) | payer BC, OTHER ==
[2019-06-11] MEDS ORDERED: Lactated Ringers 500 ML IV ONE (01:35)
[2019-06-11] MEDS ORDERED: Acetaminophen Soln 650 MG/20.3 ML UD Cup PO ONE (01:36)
--- NOTE | 2019-06-11 01:40 | EDM.PDOC ---
ED HPI GENERAL MEDICAL PROBLEM - General Chief Complaint: Respiratory Problem Stated Complaint: [facility] Time Seen by Provider: 06/11/19 01:23 - History of Present Illness INITIAL COMMENTS - FREE TEXT/NARRATIVE: 58-year-old male presents the emergency room brought in by EMS with worsening cough and shortness of breath. This started Sunday night now 3 days ago. He is developed fevers he has a little bit of cough some mild shortness of breath he has been running fevers and he feels really thirsty. Patient does not have significant chest discomfort. He does not feel that short of breath however at the scene his reported that his lips were turning blue. It is unknown what his pulse oximetry was as EMS put a nonrebreather on him right away. Patient has been having some diarrhea no nausea or vomiting. The patient does not have any other complaints at this time other than his significant shortness of breath and feeling really thirsty. - Related Data Allergies Allergy/AdvReac Type Severity Reaction Status Date / Time No Known Allergies Allergy Verified 06/11/19 01:17 Home Meds: Home Meds . 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 Musculoskeletal History: Reports: Arthritis Neurological History: Reports: None Psychiatric History: Reports: None Endocrine/Metabolic History: Reports: None Hematologic History: Reports: Other (See Below) Other Hematologic History: elevated bilirubin, elevated hemoglobin, elevated LDL Immunologic History: Reports: None Oncologic (Cancer) History: Reports: None Dermatologic History: Reports: None - Past Surgical History Head Surgeries/Procedures: Reports: None GI Surgical History: Reports: Cholecystectomy, Hernia, Inguinal Social & Family History - Family History Cardiac: Reports: Aneurysm - Tobacco Use Smoking Status *Q: Never Smoker - Caffeine Use Caffeine Use: Reports: Soda - Recreational Drug Use Recreational Drug Use: No - Living Situation & Occupation Living situation: Reports: , with Spouse, with Family (Daughter) Occupation: Employed ([employer]) ED ROS GENERAL - Review of Systems Review Of Systems: See Below Constitutional: Reports: No Symptoms HEENT: Reports: No Symptoms Respiratory: Reports: No Symptoms, Shortness of Breath, Cough. Denies: Wheezing , Sputum, Hemoptysis Cardiovascular: Reports: No Symptoms Endocrine: Reports: No Symptoms GI/Abdominal: Reports: Diarrhea. Denies: Constipation, Nausea, Vomiting : Reports: No Symptoms Musculoskeletal: Reports: No Symptoms Skin: Reports: No Symptoms Neurological: Reports: No Symptoms Psychiatric: Reports: No Symptoms Hematologic/Lymphatic: Reports: No Symptoms Immunologic: Reports: No Symptoms ED EXAM, GENERAL - Physical Exam Exam: See Below Exam Limited By: No Limitations General Appearance: Alert, No Apparent Distress Eye Exam: Bilateral Eye: Normal Inspection Ears: Normal External Exam, Normal Canal, Hearing Grossly Normal, Normal TMs Nose: Normal Inspection, Normal Mucosa, No Blood Throat/Mouth: Normal Inspection, Normal Lips, Normal Teeth Head: Atraumatic, Normocephalic Neck: Normal Inspection, Supple, Non-Tender. No: Lymphadenopathy (L), Lymphadenopathy (R) Respiratory/Chest: No Respiratory Distress, Lungs Clear, Normal Breath Sounds Cardiovascular: Normal Peripheral Pulses, Regular Rate, Rhythm, No Edema GI/Abdominal: Normal Bowel Sounds, Soft, Non-Tender Back Exam: Normal Inspection. No: CVA Tenderness (L), CVA Tenderness (R) Extremities: Normal Inspection, No Pedal Edema Neurological: Alert, Oriented, Normal Cognition Course - Vital Signs Last Recorded V/S: Last Vital Signs Temp 28.1 C L 06/11/19 02:11 Pulse 86 06/11/19 04:01 Resp 20 06/11/19 04:01 BP 113/74 06/11/19 04:01 Pulse Ox 98 06/11/19 04:01 - Orders/Labs/Meds Orders: Active Orders 24 hr Category Date Time Status EKG Documentation Completion [RC] STAT Care 06/11/19 01:30 Active Ang Chest [CT] Stat Exams 06/11/19 03:46 Ordered Chest 1V Frontal [CR] Stat Exams 06/11/19 01:30 Taken CULTURE BLOOD [BC] Stat Lab 06/11/19 02:09 Received CULTURE BLOOD [BC] Stat Lab 06/11/19 02:19 Received Doxycycline [Vibramycin] 100 mg Med 06/11/19 04:11 Active Sodium Chloride 0.9% [Normal Saline] 100 ml IV Q12HR Hydroxychloroquine [Plaquenil] Med 06/11/19 04:12 Active 400 mg PO DAILY Lactated Ringers [Ringers, Lactated] 1,000 ml Med 06/11/19 01:45 Active IV ASDIRECTED Sodium Chloride 0.9% [Normal Saline] 1,000 ml Med 06/11/19 04:00 Active IV ASDIRECTED cefTRIAXone [Rocephin] 2 gm Med 06/11/19 04:00 Active Sodium Chloride 0.9% [Normal Saline] 100 ml IV Q24H Blood Culture x2 Reflex Set [OM.PC] Stat Oth 06/11/19 01:41 Ordered Medication Orders Hydroxychloroquine Sulfate (Plaquenil) 400 mg PO DAILY [facility] Last Admin: 06/11/19 04:22 Dose: 400 mg Lactated Ringer's (Ringers, Lactated) 1,000 mls @ 125 mls/hr IV ASDIRECTED SANDRA Sodium Chloride (Normal Saline) 1,000 mls @ 25 mls/hr IV ASDIRECTED SANDRA Last Admin: 06/11/19 04:25 Dose: 25 mls/hr Ceftriaxone Sodium 2 gm/ (Sodium Chloride) 100 mls @ 200 mls/hr IV Q24H [facility] Last Admin: 06/11/19 04:25 Dose: 200 mls/hr Doxycycline Hyclate 100 mg/ (Sodium Chloride) 100 mls @ 100 mls/hr IV Q12HR [facility] Labs: Laboratory Tests 06/11/19 06/11/19 06/11/19 Range/Units 01:20 01:45 02:09 WBC 4.04 L (4.23-9.07) K/mm3 RBC 6.31 H (4.63-6.08) M/mm3 Hgb 18.3 H D (13.7-17.5) gm/dl Hct 54.1 H (40.1-51.0) % MCV 85.7 (79.0-92.2) fl MCH 29.0 (25.7-32.2) pg MCHC 33.8 (32.2-35.5) g/dl RDW Std Deviation 42.6 (35.1-43.9) fL Plt Count 172 D (163-337) K/mm3 MPV 9.2 L (9.4-12.3) fl Neutrophils % (Manual) 49 (40-60) % Band Neutrophils % 25 H (0-10) % Lymphocytes % (Manual) 12 L (20-40) % Atypical Lymphs % 12 % Monocytes % (Manual) 2 (2-10) % Eosinophils % (Manual) 0 L (0.8-7.0) % Basophils % (Manual) 0 L (0.2-1.2) Toxic Granulation 1+ slight Platelet Estimate Adequate Plt Morphology Comment Normal RBC Morph Comment Normal D-Dimer, Quantitative (0.19-0.50) mg/L Sodium 138 (136-145) mEq/L Potassium 3.7 (3.5-5.1) mEq/L Chloride 104 (98-107) mEq/L Carbon Dioxide 22 (21-32) mEq/L Anion Gap 15.7 H (5-15) BUN 17 (7-18) mg/dL Creatinine 1.2 (0.7-1.3) mg/dL Est Cr Clr Drug Dosing 73.21 mL/min Estimated GFR (MDRD) > 60 (>60) mL/min BUN/Creatinine Ratio 14.2 (14-18) Glucose 170 H (74-106) mg/dL Lactic Acid (0.4-2.0) mmol/L Calcium 8.1 L (8.5-10.1) mg/dL Ferritin (26-388) ng/ml Total Bilirubin 3.5 H (0.2-1.0) mg/dL AST 26 (15-37) U/L ALT 26 (16-63) U/L Alkaline Phosphatase 97 (46-116) U/L Creatine Kinase 160 (39-308) U/L C-Reactive Protein 9.4 H* (<1.0) mg/dL Total Protein 6.1 L (6.4-8.2) g/dl Albumin 3.1 L (3.4-5.0) g/dl Globulin 3.0 gm/dL Albumin/Globulin Ratio 1.0 (1-2) SARS-CoV-2 RNA (RT-PCR) Negative (NEGATIVE) 06/11/19 06/11/19 06/11/19 Range/Units 02:09 02:09 02:19 WBC (4.23-9.07) K/mm3 RBC (4.63-6.08) M/mm3 Hgb (13.7-17.5) gm/dl Hct (40.1-51.0) % MCV (79.0-92.2) fl MCH (25.7-32.2) pg MCHC (32.2-35.5) g/dl RDW Std Deviation (35.1-43.9) fL Plt Count (163-337) K/mm3 MPV (9.4-12.3) fl Neutrophils % (Manual) (40-60) % Band Neutrophils % (0-10) % Lymphocytes % (Manual) (20-40) % Atypical Lymphs % % Monocytes % (Manual) (2-10) % Eosinophils % (Manual) (0.8-7.0) % Basophils % (Manual) (0.2-1.2) Toxic Granulation Platelet Estimate Plt Morphology Comment RBC Morph Comment D-Dimer, Quantitative 3.61 H (0.19-0.50) mg/L Sodium (136-145) mEq/L Potassium (3.5-5.1) mEq/L Chloride (98-107) mEq/L Carbon Dioxide (21-32) mEq/L Anion Gap (5-15) BUN (7-18) mg/dL Creatinine (0.7-1.3) mg/dL Est Cr Clr Drug Dosing mL/min Estimated GFR (MDRD) (>60) mL/min BUN/Creatinine Ratio (14-18) Glucose (74-106) mg/dL Lactic Acid 1.6 (0.4-2.0) mmol/L Calcium (8.5-10.1) mg/dL Ferritin 178 (26-388) ng/ml Total Bilirubin (0.2-1.0) mg/dL AST (15-37) U/L ALT (16-63) U/L Alkaline Phosphatase (46-116) U/L Creatine Kinase (39-308) U/L C-Reactive Protein (<1.0) mg/dL Total Protein (6.4-8.2) g/dl Albumin (3.4-5.0) g/dl Globulin gm/dL Albumin/Globulin Ratio (1-2) SARS-CoV-2 RNA (RT-PCR) (NEGATIVE) Meds: Medications Generic Name Dose Route Start Last Admin Trade Name Freq PRN Reason Stop Dose Admin Hydroxychloroquine Sulfate 400 mg 06/11/19 04:12 06/11/19 04:22 Plaquenil PO 400 mg DAILY SANDRA Administration Lactated Ringer's 1,000 mls @ 125 mls/hr 06/11/19 01:45 Ringers, Lactated IV ASDIRECTED SANDRA Sodium Chloride 1,000 mls @ 25 mls/hr 06/11/19 04:00 06/11/19 04:25 Normal Saline IV 25 mls/hr ASDIRECTED SANDRA Administration Ceftriaxone Sodium 2 gm/ 100 mls @ 200 mls/hr 06/11/19 04:00 06/11/19 04:25 Sodium Chloride IV 200 mls/hr Q24H SANDRA Administration Doxycycline Hyclate 100 mg/ 100 mls @ 100 mls/hr 06/11/19 04:11 Sodium Chloride IV Q12HR SANDRA Discontinued Medications Generic Name Dose Route Start Last Admin Trade Name Audra PRN Reason Stop Dose Admin Acetaminophen 650 mg 06/11/19 01:36 06/11/19 01:41 Tylenol PO 06/11/19 01:37 650 mg ONETIME ONE Administration Hydroxychloroquine Sulfate 400 mg 06/11/19 04:00 Hydroxychloroquine Sulfate Oral Susp 25 Mg/Ml PO 06/11/19 09:01 BID SANDRA Lactated Ringer's 500 mls @ 999 mls/hr 06/11/19 01:35 06/11/19 01:41 Ringers, Lactated IV 06/11/19 02:05 999 mls/hr .BOLUS ONE Administration Doxycycline Hyclate 100 mg/ 100 mls @ 100 mls/hr 06/11/19 09:00 Sodium Chloride IV Q12HR SANDRA - Re-Assessments/Exams Free Text/Narrative Re-Assessment/Exam: 06/11/19 03:56 Discussed with he will assume care. He would like me to start Rocephin and doxycyclin hydroxychloroquine changing IV fluids to NS at 25 cc an hour and start Lovenox 30 mg twice daily. Labs are taking a long time tonight his COVID screen was negative however C-reactive protein is quite elevated he is neutropenic. Departure - Departure Time of Disposition: 03:56 Disposition: Admitted As Inpatient 68 Clinical Impression: Hypoxia, Fever - Discharge Information Sepsis Event Note - Evaluation Sepsis Screening Result: Possible Sepsis Risk - Focused Exam Vital Signs: Vital Signs Temp Temp Pulse Pulse Resp BP Pulse Ox 06/11/19 04:01 86 20 113/74 98 06/11/19 04:00 79 24 H 97 06/11/19 03:56 80 23 H 104/79 98 06/11/19 03:55 80 23 H 97 06/11/19 03:51 91 25 H 109/80 98 06/11/19 03:50 91 22 H 98 06/11/19 03:46 87 22 H 113/81 98 06/11/19 03:45 80 23 H 98 06/11/19 03:41 92 21 H 108/78 97 06/11/19 03:40 88 24 H 97 06/11/19 03:36 94 27 H 111/80 97 06/11/19 03:35 93 26 H 97 06/11/19 03:31 95 27 H 110/82 98 06/11/19 03:30 96 16 98 06/11/19 03:26 97 24 H 108/77 98 06/11/19 03:25 94 24 H 97 06/11/19 03:21 100 24 H 106/75 98 06/11/19 03:20 100 22 H 97 06/11/19 03:16 103 H 22 H 108/77 98 06/11/19 03:15 99 24 H 98 06/11/19 03:11 104 H 16 108/79 97 06/11/19 03:10 101 H 15 97 06/11/19 03:06 104 H 25 H 109/79 97 06/11/19 03:05 103 H 26 H 97 06/11/19 03:01 104 H 26 H 110/79 97 06/11/19 03:00 105 H 19 96 06/11/19 02:56 105 H 27 H 111/79 96 06/11/19 02:55 107 H 22 H 96 06/11/19 02:51 105 H 15 110/79 96 06/11/19 02:50 105 H 20 96 06/11/19 02:46 107 H 30 H 114/76 96 06/11/19 02:45 106 H 28 H 96 06/11/19 02:41 108 H 30 H 111/77 96 06/11/19 02:40 106 H 29 H 96 06/11/19 02:36 106 H 31 H 112/75 96 06/11/19 02:35 104 H 27 H 96 06/11/19 02:31 113 H 23 H 93/74 97 06/11/19 02:30 113 H 20 98 06/11/19 02:26 112 H 28 H 107/74 98 06/11/19 02:25 110 H 19 98 06/11/19 02:22 110 H 26 H 110/73 99 06/11/19 02:21 110 H 28 H 98 06/11/19 02:11 28.1 C L 06/11/19 02:01 119 H 24 H 114/70 96 06/11/19 02:00 119 H 26 H 96 06/11/19 01:56 126 H 19 108/70 96 06/11/19 01:55 123 H 28 H 95 06/11/19 01:51 129 H 18 113/71 94 L 06/11/19 01:50 129 H 33 H 95 06/11/19 01:46 133 H 29 H 103/70 94 L 06/11/19 01:45 133 H 26 H 94 L 06/11/19 01:41 39.2 C H 137 H 25 H 89/70 L 95 06/11/19 01:40 138 H 22 H 94 L 06/11/19 01:36 139 H 30 H 103/74 94 L 06/11/19 01:35 139 H 31 H 93 L 06/11/19 01:32 144 H 29 H 100/69 93 L 06/11/19 01:31 143 H 35 H 94 L 06/11/19 01:26 144 H 21 H 95 06/11/19 01:17 39.0 C H 141 H 31 H 100 Date Exam was Performed: 06/11/19 Time Exam was Performed: 04:38 - My Orders Last 24 Hours: My Active Orders 06/11/19 01:30 EKG Documentation Completion [RC] STAT Chest 1V Frontal [CR] Stat 06/11/19 01:41 Blood Culture x2 Reflex Set [OM.PC] Stat 06/11/19 01:45 Lactated Ringers [Ringers, Lactated] 1,000 ml IV ASDIRECTED 06/11/19 02:09 CULTURE BLOOD [BC] Stat 06/11/19 02:19 CULTURE BLOOD [BC] Stat 06/11/19 03:46 Ang Chest [CT] Stat 06/11/19 04:00 Sodium Chloride 0.9% [Normal Saline] 1,000 ml IV ASDIRECTED cefTRIAXone [Rocephin] 2 gm Sodium Chloride 0.9% [Normal Saline] 100 ml IV Q24H 06/11/19 04:11 Doxycycline [Vibramycin] 100 mg Sodium Chloride 0.9% [Normal Saline] 100 ml IV Q12HR 06/11/19 04:12 Hydroxychloroquine [Plaquenil] 400 mg PO DAILY - Assessment/Plan Last 24 Hours: My Active Orders 06/11/19 01:30 EKG Documentation Completion [RC] STAT Chest 1V Frontal [CR] Stat 06/11/19 01:41 Blood Culture x2 Reflex Set [OM.PC] Stat 06/11/19 01:45 Lactated Ringers [Ringers, Lactated] 1,000 ml IV ASDIRECTED 06/11/19 02:09 CULTURE BLOOD [BC] Stat 06/11/19 02:19 CULTURE BLOOD [BC] Stat 06/11/19 03:46 Ang Chest [CT] Stat 06/11/19 04:00 Sodium Chloride 0.9% [Normal Saline] 1,000 ml IV ASDIRECTED cefTRIAXone [Rocephin] 2 gm Sodium Chloride 0.9% [Normal Saline] 100 ml IV Q24H 06/11/19 04:11 Doxycycline [Vibramycin] 100 mg Sodium Chloride 0.9% [Normal Saline] 100 ml IV Q12HR 06/11/19 04:12 Hydroxychloroquine [Plaquenil] 400 mg PO DAILY
[2019-06-11] MEDS ORDERED: Lactated Ringers 1,000 ML IV SCH ×2 (01:45→11:45)
[2019-06-11] MEDS ORDERED: Sodium Chloride 0.9% 1,000 ML IV SCH (04:00)
[2019-06-11] MEDS ORDERED: HYDROXYCHLOROQUINE SULFATE PO SCH (04:00)
[2019-06-11] MEDS ORDERED: Doxycycline 100 MG in Sodium Chloride 0.9% 100 ML IV SCH ×2 (04:11→09:00)
[2019-06-11] MEDS ORDERED: Hydroxychloroquine 200 MG Tab PO SCH (04:12)
[2019-06-11] MEDS: cefTRIAXone 2 GM in Sodium Chloride 0.9% 100 ML IV SCH (04:25)
--- NOTE | 2019-06-11 06:33 | CT ---
CT chest Technique: Multiple axial sections were obtained from above the lung apices inferiorly through the lung bases. Intravenous contrast was utilized. Study has been performed as a pulmonary angiogram protocol. Findings: Pulmonary arteries are well opacified. No filling defects are seen to indicate pulmonary embolism. Aorta shows no aneurysm. No mediastinal adenopathy is seen. Hilar regions appear within normal limits. No pericardial thickening is seen. Several small low density lesions noted within the liver which are most likely due to small cyst. Previous cholecystectomy is noted. Lung window settings shows by basilar atelectasis as well as posterior dependent atelectasis. Lungs otherwise are clear with no acute parenchymal change. Bone window settings were reviewed which shows no acute osseous finding. Impression: 1. Mild areas of atelectasis as noted above. 2. No findings of pulmonary embolism. Nothing acute is appreciated. Diagnostic code #2 This report was dictated in MDT I agree with preliminary report from [facility], finalized on 06/11/19, 6:33 AM [place] Daylight Time
--- NOTE | 2019-06-11 06:33 | CR ---
Chest: Frontal view of the chest was obtained. Comparison: Prior chest x-ray of 08/13/18. Heart size and mediastinum are normal. Lungs show no acute parenchymal change. Bony structures are unremarkable. Impression: 1. Nothing acute is seen on frontal chest x-ray. Diagnostic code #1 This report was dictated in MDT
--- NOTE | 2019-06-11 07:44 | PCM.HP.2 ---
H&P History of Present Illness - General Date of Service: 06/11/19 Admit Problem/Dx: Admission Diagnosis/Problem Admission Diagnosis/Problem Fever Source of Information: Patient, Old Records, Provider, RN, RN Notes Reviewed History Limitations: Reports: No Limitations - Related Data Allergies/Adverse Reactions: Allergies Allergy/AdvReac Type Severity Reaction Status Date / Time No Known Allergies Allergy Verified 06/11/19 01:17 Home Medications: Home Meds . [No Known Home Meds] 06/11/19 [History] Past Medical History HEENT History: Reports: Allergic Rhinitis, Impaired Vision, Other (See Below) Other HEENT History: states wears reading glasses, they are at home. Cardiovascular History: Reports: High Cholesterol Respiratory History: Reports: None Gastrointestinal History: Reports: Other (See Below) Other Gastrointestinal History: increased bilirubin, Genitourinary History: Reports: None Other Genitourinary History: prostatitis [employer] History: Reports: None Musculoskeletal History: Reports: Arthritis Neurological History: Reports: None Psychiatric History: Reports: None Endocrine/Metabolic History: Reports: None Hematologic History: Reports: Other (See Below) Other Hematologic History: elevated bilirubin, elevated hemoglobin, elevated LDL Immunologic History: Reports: None Oncologic (Cancer) History: Reports: None Dermatologic History: Reports: None - Past Surgical History Head Surgeries/Procedures: Reports: None GI Surgical History: Reports: Cholecystectomy, Hernia, Inguinal Social & Family History - Family History Cardiac: Reports: Aneurysm - Tobacco Use Smoking Status *Q: Never Smoker Second Hand Smoke Exposure: Yes - Caffeine Use Caffeine Use: Reports: Soda Caffeine Use Comment: Mountain Dew - Recreational Drug Use Recreational Drug Use: No - Living Situation & Occupation Living situation: Reports: , with Spouse, with Family (Daughter) Occupation: Employed ([employer]) H&P Review of Systems - Review of Systems: Review Of Systems: See Below Exam - Exam Exam: See Below - Vital Signs Vital Signs: Last Vital Signs Temp 98.7 F 06/11/19 05:00 Pulse 77 06/11/19 05:46 Resp 26 H 06/11/19 04:31 BP 106/70 06/11/19 05:46 Pulse Ox 97 06/11/19 06:10 Weight: 186 lb 12.8 oz - Patient Data Lab Results Last 24 hrs: Laboratory Results - last 24 hr 06/11/19 06/11/19 06/11/19 Range/Units 01:20 01:45 02:09 WBC 4.04 L (4.23-9.07) K/mm3 RBC 6.31 H (4.63-6.08) M/mm3 Hgb 18.3 H D (13.7-17.5) gm/dl Hct 54.1 H (40.1-51.0) % MCV 85.7 (79.0-92.2) fl MCH 29.0 (25.7-32.2) pg MCHC 33.8 (32.2-35.5) g/dl RDW Std Deviation 42.6 (35.1-43.9) fL Plt Count 172 D (163-337) K/mm3 MPV 9.2 L (9.4-12.3) fl Neutrophils % (Manual) 49 (40-60) % Band Neutrophils % 25 H (0-10) % Lymphocytes % (Manual) 12 L (20-40) % Atypical Lymphs % 12 % Monocytes % (Manual) 2 (2-10) % Eosinophils % (Manual) 0 L (0.8-7.0) % Basophils % (Manual) 0 L (0.2-1.2) Toxic Granulation 1+ slight Platelet Estimate Adequate Plt Morphology Comment Normal RBC Morph Comment Normal D-Dimer, Quantitative (0.19-0.50) mg/L Sodium 138 (136-145) mEq/L Potassium 3.7 (3.5-5.1) mEq/L Chloride 104 (98-107) mEq/L Carbon Dioxide 22 (21-32) mEq/L Anion Gap 15.7 H (5-15) BUN 17 (7-18) mg/dL Creatinine 1.2 (0.7-1.3) mg/dL Est Cr Clr Drug Dosing 73.21 mL/min Estimated GFR (MDRD) > 60 (>60) mL/min BUN/Creatinine Ratio 14.2 (14-18) Glucose 170 H (74-106) mg/dL Lactic Acid (0.4-2.0) mmol/L Calcium 8.1 L (8.5-10.1) mg/dL Ferritin (26-388) ng/ml Total Bilirubin 3.5 H (0.2-1.0) mg/dL AST 26 (15-37) U/L ALT 26 (16-63) U/L Alkaline Phosphatase 97 (46-116) U/L Creatine Kinase 160 (39-308) U/L C-Reactive Protein 9.4 H* (<1.0) mg/dL Total Protein 6.1 L (6.4-8.2) g/dl Albumin 3.1 L (3.4-5.0) g/dl Globulin 3.0 gm/dL Albumin/Globulin Ratio 1.0 (1-2) SARS-CoV-2 RNA (RT-PCR) Negative (NEGATIVE) 06/11/19 06/11/19 06/11/19 Range/Units 02:09 02:09 02:19 WBC (4.23-9.07) K/mm3 RBC (4.63-6.08) M/mm3 Hgb (13.7-17.5) gm/dl Hct (40.1-51.0) % MCV (79.0-92.2) fl MCH (25.7-32.2) pg MCHC (32.2-35.5) g/dl RDW Std Deviation (35.1-43.9) fL Plt Count (163-337) K/mm3 MPV (9.4-12.3) fl Neutrophils % (Manual) (40-60) % Band Neutrophils % (0-10) % Lymphocytes % (Manual) (20-40) % Atypical Lymphs % % Monocytes % (Manual) (2-10) % Eosinophils % (Manual) (0.8-7.0) % Basophils % (Manual) (0.2-1.2) Toxic Granulation Platelet Estimate Plt Morphology Comment RBC Morph Comment D-Dimer, Quantitative 3.61 H (0.19-0.50) mg/L Sodium (136-145) mEq/L Potassium (3.5-5.1) mEq/L Chloride (98-107) mEq/L Carbon Dioxide (21-32) mEq/L Anion Gap (5-15) BUN (7-18) mg/dL Creatinine (0.7-1.3) mg/dL Est Cr Clr Drug Dosing mL/min Estimated GFR (MDRD) (>60) mL/min BUN/Creatinine Ratio (14-18) Glucose (74-106) mg/dL Lactic Acid 1.6 (0.4-2.0) mmol/L Calcium (8.5-10.1) mg/dL Ferritin 178 (26-388) ng/ml Total Bilirubin (0.2-1.0) mg/dL AST (15-37) U/L ALT (16-63) U/L Alkaline Phosphatase (46-116) U/L Creatine Kinase (39-308) U/L C-Reactive Protein (<1.0) mg/dL Total Protein (6.4-8.2) g/dl Albumin (3.4-5.0) g/dl Globulin gm/dL Albumin/Globulin Ratio (1-2) SARS-CoV-2 RNA (RT-PCR) (NEGATIVE) Result Diagrams: 06/11/19 01:20 06/11/19 02:09 Sepsis Event Note - Evaluation Sepsis Screening Result: Possible Sepsis Risk - Focused Exam Vital Signs: Vital Signs Temp Temp Pulse Pulse Resp BP Pulse Ox 06/11/19 06:10 06/11/19 05:46 77 106/70 98 06/11/19 05:21 78 97 06/11/19 05:00 98.7 F 78 95 06/11/19 04:31 81 26 H 110/78 97 06/11/19 04:30 80 25 H 97 06/11/19 04:21 80 20 112/82 98 06/11/19 04:20 83 21 H 99 06/11/19 04:16 79 23 H 112/75 98 06/11/19 04:15 91 19 98 06/11/19 04:11 77 23 H 111/74 99 06/11/19 04:10 87 26 H 98 06/11/19 04:06 85 23 H 111/77 98 06/11/19 04:01 86 20 113/74 98 06/11/19 04:00 79 24 H 97 06/11/19 03:56 80 23 H 104/79 98 06/11/19 03:55 80 23 H 97 06/11/19 03:51 91 25 H 109/80 98 06/11/19 03:50 91 22 H 98 06/11/19 03:46 87 22 H 113/81 98 06/11/19 03:45 80 23 H 98 06/11/19 03:41 92 21 H 108/78 97 06/11/19 03:40 88 24 H 97 06/11/19 03:36 94 27 H 111/80 97 06/11/19 03:35 93 26 H 97 06/11/19 03:31 95 27 H 110/82 98 06/11/19 03:30 96 16 98 06/11/19 03:26 97 24 H 108/77 98 06/11/19 03:25 94 24 H 97 06/11/19 03:21 100 24 H 106/75 98 06/11/19 03:20 100 22 H 97 06/11/19 03:16 103 H 22 H 108/77 98 06/11/19 03:15 99 24 H 98 06/11/19 03:11 104 H 16 108/79 97 06/11/19 03:10 101 H 15 97 06/11/19 03:06 104 H 25 H 109/79 97 06/11/19 03:05 103 H 26 H 97 06/11/19 03:01 104 H 26 H 110/79 97 06/11/19 03:00 105 H 19 96 06/11/19 02:56 105 H 27 H 111/79 96 06/11/19 02:55 107 H 22 H 96 06/11/19 02:51 105 H 15 110/79 96 06/11/19 02:50 105 H 20 96 06/11/19 02:46 107 H 30 H 114/76 96 06/11/19 02:45 106 H 28 H 96 06/11/19 02:41 108 H 30 H 111/77 96 06/11/19 02:40 106 H 29 H 96 06/11/19 02:36 106 H 31 H 112/75 96 06/11/19 02:35 104 H 27 H 96 06/11/19 02:31 113 H 23 H 93/74 97 06/11/19 02:30 113 H 20 98 06/11/19 02:26 112 H 28 H 107/74 98 06/11/19 02:25 110 H 19 98 06/11/19 02:22 110 H 26 H 110/73 99 06/11/19 02:21 110 H 28 H 98 06/11/19 02:11 98.4 F 06/11/19 02:01 119 H 24 H 114/70 96 06/11/19 02:00 119 H 26 H 96 06/11/19 01:56 126 H 19 108/70 96 06/11/19 01:55 123 H 28 H 95 06/11/19 01:51 129 H 18 113/71 94 L 06/11/19 01:50 129 H 33 H 95 06/11/19 01:46 133 H 29 H 103/70 94 L 06/11/19 01:45 133 H 26 H 94 L 06/11/19 01:41 102.5 F H 137 H 25 H 89/70 L 95 06/11/19 01:40 138 H 22 H 94 L 06/11/19 01:36 139 H 30 H 103/74 94 L 06/11/19 01:35 139 H 31 H 93 L 06/11/19 01:32 144 H 29 H 100/69 93 L 06/11/19 01:31 143 H 35 H 94 L 06/11/19 01:26 144 H 21 H 95 06/11/19 01:17 102.2 F H 141 H 31 H 100 Pulse Ox 06/11/19 06:10 97 06/11/19 05:46 06/11/19 05:21 06/11/19 05:00 06/11/19 04:31 06/11/19 04:30 06/11/19 04:21 06/11/19 04:20 06/11/19 04:16 06/11/19 04:15 06/11/19 04:11 06/11/19 04:10 06/11/19 04:06 06/11/19 04:01 06/11/19 04:00 06/11/19 03:56 06/11/19 03:55 06/11/19 03:51 06/11/19 03:50 06/11/19 03:46 06/11/19 03:45 06/11/19 03:41 06/11/19 03:40 06/11/19 03:36 06/11/19 03:35 06/11/19 03:31 06/11/19 03:30 06/11/19 03:26 06/11/19 03:25 06/11/19 03:21 06/11/19 03:20 06/11/19 03:16 06/11/19 03:15 06/11/19 03:11 06/11/19 03:10 06/11/19 03:06 06/11/19 03:05 06/11/19 03:01 06/11/19 03:00 06/11/19 02:56 06/11/19 02:55 06/11/19 02:51 06/11/19 02:50 06/11/19 02:46 06/11/19 02:45 06/11/19 02:41 06/11/19 02:40 06/11/19 02:36 06/11/19 02:35 06/11/19 02:31 06/11/19 02:30 06/11/19 02:26 06/11/19 02:25 06/11/19 02:22 06/11/19 02:21 06/11/19 02:11 06/11/19 02:01 06/11/19 02:00 06/11/19 01:56 06/11/19 01:55 06/11/19 01:51 06/11/19 01:50 06/11/19 01:46 06/11/19 01:45 06/11/19 01:41 06/11/19 01:40 06/11/19 01:36 06/11/19 01:35 06/11/19 01:32 06/11/19 01:31 06/11/19 01:26 06/11/19 01:17 Date Exam was Performed: 06/11/19 Time Exam was Performed: 07:42 Problem List Initiated/Reviewed/Updated: Yes Orders Last 24hrs: Active Orders 24 hr Category Date Time Status Admission Status [Patient Status] [ADT] Routine ADT 06/11/19 04:23 Active Oxygen Therapy Adult [Oxygen Therapy] [RC] ASDIRECTED Care 06/11/19 06:10 Active Regular Diet [DIET] Diet 06/11/19 Breakfast Active CULTURE BLOOD [BC] Stat Lab 06/11/19 02:09 Received CULTURE BLOOD [BC] Stat Lab 06/11/19 02:19 Received Acetaminophen [Tylenol] Med 06/11/19 06:09 Active 650 mg PO Q4H PRN Doxycycline [Vibramycin] 100 mg Med 06/11/19 17:00 Active Sodium Chloride 0.9% [Normal Saline] 100 ml IV Q12H Enoxaparin [Lovenox] Med 06/11/19 09:00 Active 30 mg SUBCUT Q12H Hydroxychloroquine [Plaquenil] Med 06/12/19 09:00 Active 200 mg PO BID Hydroxychloroquine [Plaquenil] Med 06/11/19 21:00 Once 400 mg PO ONETIME ONE Sodium Chloride 0.9% [Normal Saline] 1,000 ml Med 06/11/19 04:00 Active IV ASDIRECTED cefTRIAXone [Rocephin] 2 gm Med 06/11/19 04:00 Active Sodium Chloride 0.9% [Normal Saline] 100 ml IV Q24H Blood Culture x2 Reflex Set [OM.PC] Stat Oth 06/11/19 01:41 Ordered Pulse Oximetry Continuous Monitoring [OM.PC] Routine Oth 06/11/19 06:12 Active Code Status [Resuscitation Status] Routine Resus Stat 06/11/19 06:11 Ordered Medication Orders Acetaminophen (Tylenol) 650 mg PO Q4H PRN PRN Reason: Pain/Fever Enoxaparin Sodium (Lovenox) 30 mg SUBCUT Q12H [facility] Hydroxychloroquine Sulfate (Plaquenil) 400 mg PO ONETIME ONE Stop: 06/11/19 21:01 Hydroxychloroquine Sulfate (Plaquenil) 200 mg PO BID [facility] Sodium Chloride (Normal Saline) 1,000 mls @ 25 mls/hr IV ASDIRECTED [facility] Last Admin: 06/11/19 04:25 Dose: 25 mls/hr Ceftriaxone Sodium 2 gm/ (Sodium Chloride) 100 mls @ 200 mls/hr IV Q24H [facility] Last Admin: 06/11/19 04:25 Dose: 200 mls/hr Doxycycline Hyclate 100 mg/ (Sodium Chloride) 100 mls @ 100 mls/hr IV Q12H [facility]
[2019-06-11] MEDS ORDERED: FLU Vacc QS2019-20(6MOS+)/PF 60 MCG/0.5 ML SYRINGE IM ONE (08:45)
[2019-06-11] MEDS: Enoxaparin 30 MG/0.3 ML Syringe SUBCUT SCH ×2 (08:59→20:09)
--- NOTE | 2019-06-11 15:12 | PCM.HP.2 ---
<Bebeto Colindres N - Last Filed: 06/11/19 15:07> H&P History of Present Illness - General Date of Service: 06/11/19 Admit Problem/Dx: Admission Diagnosis/Problem Admission Diagnosis/Problem Fever Source of Information: Patient - History of Present Illness Other HPI/Comments: Mr. Dumont is a pleasant 58-year-old male, without any reported significant past medical history who presented to the ED for evaluation of fevers and shortness of breath. The patient reported he was in his usual state of health, when Sunday () at night, he suddenly developed present shaking chills. Patient reported fever as high as 101.3 at home, reported mild shortness of breath did some episodes of loose stools, but denies any obvious nausea or vomiting. The next morning, patient decided to follow-up with primary care provider where patient was checked for COVID-19 was advised that test results will take about 3 days on the morning of admission, patient reported he had worsening of shortness of breath, reported nonproductive cough as well as dysuria improved after taking Azo and cranberry juice. On presentation to the ED, work-up there was done to the patient including CT chest was negative for PE, no reports of groundglass opacities on CAT scan. But as indicated WBC 4.0 H&H 18.3/54.1 platelets 171, sodium/potassium 138/3.7 chloride 104 CO2 22 BUN/creatinine 17/1.2 random glucose 170 with ferritin 178 CRP 9.4 d-dimer 3.61. Given this presentation, patient will be admitted for further work-up and management. - Related Data Allergies/Adverse Reactions: Allergies Allergy/AdvReac Type Severity Reaction Status Date / Time No Known Allergies Allergy Verified 06/11/19 08:03 Home Medications: Home Meds . [No Known Home Meds] 06/11/19 [History] Past Medical History HEENT History: Reports: Allergic Rhinitis, Impaired Vision, Other (See Below) Other HEENT History: states wears reading glasses, they are at home. Cardiovascular History: Reports: High Cholesterol Respiratory History: Reports: None Gastrointestinal History: Reports: Other (See Below) Other Gastrointestinal History: increased bilirubin, Genitourinary History: Reports: None Other Genitourinary History: prostatitis KENNEL AIDE History: Reports: None Musculoskeletal History: Reports: Arthritis Neurological History: Reports: None Psychiatric History: Reports: None Endocrine/Metabolic History: Reports: None Hematologic History: Reports: Other (See Below) Other Hematologic History: elevated bilirubin, elevated hemoglobin, elevated LDL Immunologic History: Reports: None Oncologic (Cancer) History: Reports: None Dermatologic History: Reports: None - Past Surgical History Head Surgeries/Procedures: Reports: None GI Surgical History: Reports: Cholecystectomy, Hernia, Inguinal Social & Family History - Family History Cardiac: Reports: Aneurysm - Tobacco Use Smoking Status *Q: Never Smoker Second Hand Smoke Exposure: Yes - Caffeine Use Caffeine Use: Reports: Soda Caffeine Use Comment: Mountain Dew - Recreational Drug Use Recreational Drug Use: No - Living Situation & Occupation Living situation: Reports: , with Spouse, with Family (Daughter) Occupation: Employed ([employer]) H&P Review of Systems - Review of Systems: Review Of Systems: See Below General: Reports: Fever, Chills, Weakness, Night Sweats, Diaphoresis Pulmonary: Reports: Shortness of Breath, Cough (Nonproductive) Cardiovascular: Reports: No Symptoms Gastrointestinal: Reports: Other (reported episodes of loose stools) Genitourinary: Reports: Dysuria Musculoskeletal: Reports: Other (Reported muscle aches 2 days ago.) Skin: Reports: No Symptoms Psychiatric: Reports: No Symptoms Neurological: Reports: No Symptoms Hematologic/Lymphatic: Reports: No Symptoms Immunologic: Reports: No Symptoms Exam - Exam Exam: See Below - Vital Signs Vital Signs: Last Vital Signs Temp 99.3 F 06/11/19 12:13 Pulse 78 06/11/19 12:13 Resp 14 06/11/19 12:13 BP 108/78 06/11/19 12:13 Pulse Ox 98 06/11/19 12:13 Weight: 84.731 kg - Exam General: Alert, Oriented, Other (Patient looks flushed) HEENT: Conjunctiva Clear, EACs Clear, EOMI, Hearing Intact Neck: Supple, Trachea Midline Lungs: Decreased Breath Sounds Cardiovascular: Regular Rate, Regular Rhythm GI/Abdominal Exam: Normal Bowel Sounds, Soft, Non-Tender, No Organomegaly Back Exam: Normal Inspection, Full Range of Motion Extremities: Normal Inspection, Normal Range of Motion, Non-Tender, No Pedal Edema Skin: Warm, Dry, Intact Neurological: Cranial Nerves Intact, Reflexes Equal Bilateral Neuro Extensive - Mental Status: Alert, Oriented x3 Neuro Extensive - Motor, Sensory, Reflexes: Normal Gait Psychiatric: Alert, Normal Affect, Normal Mood - Patient Data Lab Results Last 24 hrs: Laboratory Results - last 24 hr 06/11/19 06/11/19 06/11/19 Range/Units 01:20 01:20 01:45 WBC 4.04 L (4.23-9.07) K/mm3 RBC 6.31 H (4.63-6.08) M/mm3 Hgb 18.3 H D (13.7-17.5) gm/dl Hct 54.1 H (40.1-51.0) % MCV 85.7 (79.0-92.2) fl MCH 29.0 (25.7-32.2) pg MCHC 33.8 (32.2-35.5) g/dl RDW Std Deviation 42.6 (35.1-43.9) fL Plt Count 172 D (163-337) K/mm3 MPV 9.2 L (9.4-12.3) fl Neutrophils % (Manual) 49 (40-60) % Band Neutrophils % 25 H (0-10) % Lymphocytes % (Manual) 12 L (20-40) % Atypical Lymphs % 12 % Monocytes % (Manual) 2 (2-10) % Eosinophils % (Manual) 0 L (0.8-7.0) % Basophils % (Manual) 0 L (0.2-1.2) Toxic Granulation 1+ slight Platelet Estimate Adequate Plt Morphology Comment Normal RBC Morph Comment Normal D-Dimer, Quantitative (0.19-0.50) mg/L Sodium (136-145) mEq/L Potassium (3.5-5.1) mEq/L Chloride (98-107) mEq/L Carbon Dioxide (21-32) mEq/L Anion Gap (5-15) BUN (7-18) mg/dL Creatinine (0.7-1.3) mg/dL Est Cr Clr Drug Dosing mL/min Estimated GFR (MDRD) (>60) mL/min BUN/Creatinine Ratio (14-18) Glucose (74-106) mg/dL Lactic Acid (0.4-2.0) mmol/L Calcium (8.5-10.1) mg/dL Ferritin (26-388) ng/ml Total Bilirubin (0.2-1.0) mg/dL AST (15-37) U/L ALT (16-63) U/L Alkaline Phosphatase (46-116) U/L Creatine Kinase (39-308) U/L C-Reactive Protein (<1.0) mg/dL Total Protein (6.4-8.2) g/dl Albumin (3.4-5.0) g/dl Globulin gm/dL Albumin/Globulin Ratio (1-2) Mycoplasma pneumon IgM Positive H (NEGATIVE) SARS-CoV-2 RNA (RT-PCR) Negative (NEGATIVE) 06/11/19 06/11/19 06/11/19 Range/Units 02:09 02:09 02:09 WBC (4.23-9.07) K/mm3 RBC (4.63-6.08) M/mm3 Hgb (13.7-17.5) gm/dl Hct (40.1-51.0) % MCV (79.0-92.2) fl MCH (25.7-32.2) pg MCHC (32.2-35.5) g/dl RDW Std Deviation (35.1-43.9) fL Plt Count (163-337) K/mm3 MPV (9.4-12.3) fl Neutrophils % (Manual) (40-60) % Band Neutrophils % (0-10) % Lymphocytes % (Manual) (20-40) % Atypical Lymphs % % Monocytes % (Manual) (2-10) % Eosinophils % (Manual) (0.8-7.0) % Basophils % (Manual) (0.2-1.2) Toxic Granulation Platelet Estimate Plt Morphology Comment RBC Morph Comment D-Dimer, Quantitative 3.61 H (0.19-0.50) mg/L Sodium 138 (136-145) mEq/L Potassium 3.7 (3.5-5.1) mEq/L Chloride 104 (98-107) mEq/L Carbon Dioxide 22 (21-32) mEq/L Anion Gap 15.7 H (5-15) BUN 17 (7-18) mg/dL Creatinine 1.2 (0.7-1.3) mg/dL Est Cr Clr Drug Dosing 73.21 mL/min Estimated GFR (MDRD) > 60 (>60) mL/min BUN/Creatinine Ratio 14.2 (14-18) Glucose 170 H (74-106) mg/dL Lactic Acid (0.4-2.0) mmol/L Calcium 8.1 L (8.5-10.1) mg/dL Ferritin 178 (26-388) ng/ml Total Bilirubin 3.5 H (0.2-1.0) mg/dL AST 26 (15-37) U/L ALT 26 (16-63) U/L Alkaline Phosphatase 97 (46-116) U/L Creatine Kinase 160 (39-308) U/L C-Reactive Protein 9.4 H* (<1.0) mg/dL Total Protein 6.1 L (6.4-8.2) g/dl Albumin 3.1 L (3.4-5.0) g/dl Globulin 3.0 gm/dL Albumin/Globulin Ratio 1.0 (1-2) Mycoplasma pneumon IgM (NEGATIVE) SARS-CoV-2 RNA (RT-PCR) (NEGATIVE) 06/11/19 Range/Units 02:19 WBC (4.23-9.07) K/mm3 RBC (4.63-6.08) M/mm3 Hgb (13.7-17.5) gm/dl Hct (40.1-51.0) % MCV (79.0-92.2) fl MCH (25.7-32.2) pg MCHC (32.2-35.5) g/dl RDW Std Deviation (35.1-43.9) fL Plt Count (163-337) K/mm3 MPV (9.4-12.3) fl Neutrophils % (Manual) (40-60) % Band Neutrophils % (0-10) % Lymphocytes % (Manual) (20-40) % Atypical Lymphs % % Monocytes % (Manual) (2-10) % Eosinophils % (Manual) (0.8-7.0) % Basophils % (Manual) (0.2-1.2) Toxic Granulation Platelet Estimate Plt Morphology Comment RBC Morph Comment D-Dimer, Quantitative (0.19-0.50) mg/L Sodium (136-145) mEq/L Potassium (3.5-5.1) mEq/L Chloride (98-107) mEq/L Carbon Dioxide (21-32) mEq/L Anion Gap (5-15) BUN (7-18) mg/dL Creatinine (0.7-1.3) mg/dL Est Cr Clr Drug Dosing mL/min Estimated GFR (MDRD) (>60) mL/min BUN/Creatinine Ratio (14-18) Glucose (74-106) mg/dL Lactic Acid 1.6 (0.4-2.0) mmol/L Calcium (8.5-10.1) mg/dL Ferritin (26-388) ng/ml Total Bilirubin (0.2-1.0) mg/dL AST (15-37) U/L ALT (16-63) U/L Alkaline Phosphatase (46-116) U/L Creatine Kinase (39-308) U/L C-Reactive Protein (<1.0) mg/dL Total Protein (6.4-8.2) g/dl Albumin (3.4-5.0) g/dl Globulin gm/dL Albumin/Globulin Ratio (1-2) Mycoplasma pneumon IgM (NEGATIVE) SARS-CoV-2 RNA (RT-PCR) (NEGATIVE) Result Diagrams: 06/11/19 01:20 06/11/19 02:09 Augie Results Last 24 hrs: Microbiology 06/11/19 11:48 Group A Streptococcus Rapid Screen - Final Throat NEGATIVE STREP A SCREEN REFERENCE RANGE: NEGATIVE 06/11/19 09:10 Influenza Type A Antigen Screen - Final Nasopharyngeal Swab NEGATIVE INFLUENZA A VIRUS AG REFERENCE RANGE: NEGATIVE Influenza Type B Antigen Screen - Final NEGATIVE INFLUENZA B VIRUS AG REFERENCE RANGE: NEGATIVE Sepsis Event Note - Evaluation Sepsis Screening Result: No Definite Risk - Focused Exam Vital Signs: Vital Signs Temp Temp Pulse Resp BP Pulse Ox Pulse Ox 06/11/19 12:13 99.3 F 78 14 108/78 98 06/11/19 11:50 99 06/11/19 09:07 98.8 F 72 14 104/89 98 06/11/19 06:10 97 06/11/19 05:46 77 106/70 98 06/11/19 05:21 78 97 06/11/19 05:00 98.7 F 78 95 06/11/19 04:31 81 26 H 110/78 97 06/11/19 04:30 80 25 H 97 06/11/19 04:21 80 20 112/82 98 06/11/19 04:20 83 21 H 99 06/11/19 04:16 79 23 H 112/75 98 06/11/19 04:15 91 19 98 06/11/19 04:11 77 23 H 111/74 99 06/11/19 04:10 87 26 H 98 06/11/19 04:06 85 23 H 111/77 98 06/11/19 04:01 86 20 113/74 98 06/11/19 04:00 79 24 H 97 06/11/19 03:56 80 23 H 104/79 98 06/11/19 03:55 80 23 H 97 06/11/19 03:51 91 25 H 109/80 98 06/11/19 03:50 91 22 H 98 06/11/19 03:46 87 22 H 113/81 98 06/11/19 03:45 80 23 H 98 06/11/19 03:41 92 21 H 108/78 97 06/11/19 03:40 88 24 H 97 06/11/19 03:36 94 27 H 111/80 97 06/11/19 03:35 93 26 H 97 06/11/19 03:31 95 27 H 110/82 98 06/11/19 03:30 96 16 98 06/11/19 03:26 97 24 H 108/77 98 06/11/19 03:25 94 24 H 97 06/11/19 03:21 100 24 H 106/75 98 06/11/19 03:20 100 22 H 97 06/11/19 03:16 103 H 22 H 108/77 98 06/11/19 03:15 99 24 H 98 06/11/19 03:11 104 H 16 108/79 97 06/11/19 03:10 101 H 15 97 Date Exam was Performed: 06/11/19 Time Exam was Performed: 15:07 Problem List Initiated/Reviewed/Updated: Yes Orders Last 24hrs: Active Orders 24 hr Category Date Time Status Admission Status [Patient Status] [ADT] Routine ADT 06/11/19 04:23 Active Incentive Spirometry [RT Incentive Spirometry] [] Care 06/11/19 11:50 Active Q2HWA Influenza Vaccine Charge [RC] .DISCHARGE Care 06/11/19 08:30 Inactive Oxygen Therapy Adult [Oxygen Therapy] [RC] ASDIRECTED Care 06/11/19 06:10 Active Regular Diet [DIET] Diet 06/11/19 Breakfast Active COMPREHENSIVE METABOLIC PN,CMP [CHEM] AM Lab 06/12/19 05:11 Ordered CRP [C-REACTIVE PROTEIN] [CHEM] Routine Lab 06/12/19 05:11 Ordered CULTURE BLOOD [BC] Stat Lab 06/11/19 02:09 Received CULTURE BLOOD [BC] Stat Lab 06/11/19 02:19 Received CULTURE STREP A CONFIRMATION [RM] Routine Lab 06/11/19 11:48 Results DD [D-DIMER QUANTITATIVE] [COAG] AM Lab 06/12/19 05:11 Ordered FERRITIN [CHEM] AM Lab 06/12/19 05:11 Ordered LACTATE DEHYDROGENASE,LDH [CHEM] AM Lab 06/12/19 05:11 Ordered MAGNESIUM [CHEM] AM Lab 06/12/19 05:11 Ordered PHOSPHORUS [CHEM] AM Lab 06/12/19 05:11 Ordered PROCALCITONIN [REF] Stat Lab 06/11/19 01:20 Received Rapid Strep w/culture conf [STREP SCRN A RAPID W CULT Lab 06/11/19 11:48 Results CONF] [] Routine Acetaminophen [Tylenol] Med 06/11/19 06:09 Active 650 mg PO Q4H PRN Doxycycline [Vibramycin] 100 mg Med 06/11/19 17:00 Active Sodium Chloride 0.9% [Normal Saline] 100 ml IV Q12H Enoxaparin [Lovenox] Med 06/11/19 09:00 Active 30 mg SUBCUT Q12H Hydroxychloroquine [Plaquenil] Med 06/12/19 09:00 Active 200 mg PO BID Hydroxychloroquine [Plaquenil] Med 06/11/19 21:00 Once 400 mg PO ONETIME ONE Lactated Ringers [Ringers, Lactated] 1,000 ml Med 06/11/19 11:45 Active IV ASDIRECTED cefTRIAXone [Rocephin] 2 gm Med 06/11/19 04:00 Active Sodium Chloride 0.9% [Normal Saline] 100 ml IV Q24H Blood Culture x2 Reflex Set [OM.PC] Stat Oth 06/11/19 01:41 Ordered Isolation [COMM] Routine Oth 06/11/19 08:36 Ordered Pulse Oximetry Continuous Monitoring [OM.PC] Routine Oth 06/11/19 06:12 Active Code Status [Resuscitation Status] Routine Resus Stat 06/11/19 06:11 Ordered Medication Orders Acetaminophen (Tylenol) 650 mg PO Q4H PRN PRN Reason: Pain/Fever Enoxaparin Sodium (Lovenox) 30 mg SUBCUT Q12H [facility] Last Admin: 06/11/19 08:59 Dose: 30 mg Hydroxychloroquine Sulfate (Plaquenil) 400 mg PO ONETIME ONE Stop: 06/11/19 21:01 Hydroxychloroquine Sulfate (Plaquenil) 200 mg PO BID SANDRA Stop: 06/15/19 21:01 Ceftriaxone Sodium 2 gm/ (Sodium Chloride) 100 mls @ 200 mls/hr IV Q24H [facility] Last Admin: 06/11/19 04:25 Dose: 200 mls/hr Doxycycline Hyclate 100 mg/ (Sodium Chloride) 100 mls @ 100 mls/hr IV Q12H [facility] Lactated Ringer's (Ringers, Lactated) 1,000 mls @ 50 mls/hr IV ASDIRECTED [facility] Assessment/Plan Comment:: Assesment: cough with Reported fevers of unknown origin. Shortness of breath. Dehydration. Plan: cough with Reported fevers of unknown origin: Will place patient on contact/ droplet isolation. Rapid COVID test negative. Follow up on COVID, PCR test, repeat LDH, d-dimer, ferritin in the am. start empiric management for COVID-19 with hydroxychloroquine, Rocephin and doxycycline for complications of viral syndrome. keep oxygen supplementation. With goal 92-96 on R/A. Dehydration: Encourage p.o intake, rehydrate with LR. Shortness of breath: supplemental oxygen, prn breath treatment with albuterol 1- 2 puff PRN sob. Nauea: Zofran PRN. DVT prophylaxis: Lovenox. code status: Full code. Disposition: Request blood UA cultures, stat management for complication of acute viral syndrome, follow-up on PCR test for COVID-19. - Mortality Measure Prognosis:: Good <Laura Bacon Annie - Last Filed: 06/12/19 18:05> H&P History of Present Illness - General Admit Problem/Dx: Admission Diagnosis/Problem Admission Diagnosis/Problem Fever Social & Family History - Family History Family Medical History: Noncontributory H&P Review of Systems - Review of Systems: Review Of Systems: Comprehensive ROS is negative, except as noted in HPI. Exam - Vital Signs Vital Signs: Last Vital Signs Temp 98.6 F 06/12/19 11:58 Pulse 71 06/12/19 11:58 Resp 16 06/12/19 11:58 BP 107/75 06/12/19 11:58 Pulse Ox 96 06/12/19 11:58 - Patient Data Result Diagrams: 06/11/19 01:20 06/12/19 05:43 Sepsis Event Note - Focused Exam Vital Signs: Vital Signs Temp Pulse Resp BP Pulse Ox Pulse Ox 06/12/19 11:58 98.6 F 71 16 107/75 96 06/12/19 10:37 98.4 F 06/12/19 09:12 100 06/12/19 07:53 98.6 F 79 14 120/84 100 Date Exam was Performed: 06/12/19 Time Exam was Performed: 17:59 - Problem List (1) Mycoplasma pneumonia SNOMED Code(s): 57540378 ICD Code: J15.7 - PNEUMONIA DUE TO MYCOPLASMA PNEUMONIAE Status: Acute Current Visit: Yes (2) Acute hypoxemic respiratory failure SNOMED Code(s): 287365730 ICD Code: J96.01 - ACUTE RESPIRATORY FAILURE WITH HYPOXIA Status: Acute Current Visit: Yes (3) UTI (urinary tract infection) SNOMED Code(s): 74384436 ICD Code: N39.0 - URINARY TRACT INFECTION, SITE NOT SPECIFIED Status: Acute Current Visit: Yes (4) Bacteremia due to Gram-negative bacteria SNOMED Code(s): 796058532197 ICD Code: R78.81 - BACTEREMIA Status: Acute Current Visit: Yes (5) Hypophosphatemia SNOMED Code(s): 6067527 ICD Code: E83.39 - OTHER DISORDERS OF PHOSPHORUS METABOLISM Status: Acute Current Visit: Yes (6) Hypoalbuminemia SNOMED Code(s): 446524867 ICD Code: E88.09 - OTH DISORDERS OF PLASMA-PROTEIN METABOLISM, NEC Status: Acute Current Visit: Yes (7) Suspected COVID-19 virus infection SNOMED Code(s): 736543308 ICD Code: Z20.828 - CONTACT W AND EXPOSURE TO OTH VIRAL COMMUNICABLE DISEASES Status: Acute Current Visit: Yes (8) Volume depletion SNOMED Code(s): 803155251 ICD Code: E86.9 - VOLUME DEPLETION, UNSPECIFIED Status: Acute Current Visit: Yes Assessment/Plan Comment:: Patient without significant past medical history who is brought to the ED via EMS for worsening shortness of breath with associated cough, fever and diarrhea previously seen in outpatient setting and tested for COVID, pending. Febrile in ED Negative CXR but CTA with bibasilar atelectasis, negative for PE Leukocytopenia, elevated DD and CRP Decreased air entry on bases on physical exam Endorsed dysuria and difficulty voiding prior PLAN - Repeat COVID test - UA with urine culture if needed - Procalcitonin - Maximum isolation precautions - Trend temperature and panculture if febrile - Mycoplasma and strep. pneumoniae serology - Plaquenil, Doxycycline and Rocephin - O2 via NC, taper down as tolerated
[2019-06-11] MEDS: Acetaminophen 325 MG Tab PO PRN (18:19)
[2019-06-11] MEDS: Doxycycline 100 MG in Sodium Chloride 0.9% 100 ML IV SCH (18:19)
[2019-06-11] MEDS ORDERED: Piperacillin/Tazobactam 4.5 GM in Sodium Chloride 0.9% 100 ML IV ONE (18:49)
[2019-06-11] MEDS ORDERED: Acetaminophen/HYDROcodone 325-5 MG Tab PO ONE (20:28)
[2019-06-11] MEDS ORDERED: Hydroxychloroquine 200 MG Tab PO ONE (21:00)
[2019-06-12] MEDS ORDERED: Piperacillin/Tazobactam 4.5 GM in Sodium Chloride 0.9% 100 ML IV ONE (03:00)
[2019-06-12] MEDS: cefTRIAXone 2 GM in Sodium Chloride 0.9% 100 ML IV SCH (04:41)
[2019-06-12] MEDS: Doxycycline 100 MG in Sodium Chloride 0.9% 100 ML IV SCH ×2 (05:24→16:11)
[2019-06-12] MEDS: Enoxaparin 30 MG/0.3 ML Syringe SUBCUT SCH (08:00)
[2019-06-12] MEDS ORDERED: Hydroxychloroquine 200 MG Tab PO SCH ×2 (09:00)
[2019-06-12] MEDS ORDERED: Sodium Phosphate 30 MMOLE in Sodium Chloride 0.9% 250 ML IV ONE (10:30)
[2019-06-12] MEDS: Piperacillin/Tazobactam 4.5 GM in Sodium Chloride 0.9% 100 ML IV SCH ×2 (13:26→20:30)
[2019-06-12] MEDS: Acetaminophen 325 MG Tab PO PRN (16:10)
--- NOTE | 2019-06-12 17:05 | PCM.PN ---
- General Info Date of Service: 06/12/19 Subjective Update: Feels a lot better Tolerating diet Shortness of breath has resolved Had a headache that responded to Tylenol No more fever episodes Slept okay - Patient Data Vitals - Most Recent: Last Vital Signs Temp 98.6 F 06/12/19 11:58 Pulse 71 06/12/19 11:58 Resp 16 06/12/19 11:58 BP 107/75 06/12/19 11:58 Pulse Ox 96 06/12/19 11:58 Weight - Most Recent: 84.368 kg - Exam Quality Assessment: No: Supplemental Oxygen General: Alert, Oriented, Cooperative, No Acute Distress HEENT: Pupils Equal, Pupils Reactive, EOMI, Mucous Membr. Moist/[place] Neck: Supple, Trachea Midline, No JVD, No Thyromegaly, +2 Carotid Pulse wo Bruit. No: Lymphadenopathy Lungs: Clear to Auscultation, Normal Respiratory Effort. No: Decreased Breath Sounds, Crackles, Rales, Rhonchi, Rub, Stridor, Wheezing Cardiovascular: Regular Rate, Regular Rhythm, No Murmurs. No: Gallops, Rubs GI/Abdominal Exam: Normal Bowel Sounds, Soft, Non-Tender, No Distention Back Exam: Normal Inspection, Full Range of Motion. No: CVA Tenderness (L), CVA Tenderness (R) Extremities: Normal Inspection, Normal Range of Motion, Non-Tender, No Pedal Edema, Normal Capillary Refill Peripheral Pulses: 2+: Radial (L), Radial (R), Dorsalis Pedis (L), Dorsalis Pedis (R) Skin: Warm, Dry Neurological: No New Focal Deficit Psy/Mental Status: Alert, Normal Affect, Normal Mood Sepsis Event Note - Evaluation Sepsis Screening Result: No Definite Risk - Focused Exam Vital Signs: Vital Signs Temp Pulse Resp BP Pulse Ox Pulse Ox 06/12/19 11:58 98.6 F 71 16 107/75 96 06/12/19 10:37 98.4 F 06/12/19 09:12 100 06/12/19 07:53 98.6 F 79 14 120/84 100 Date Exam was Performed: 06/12/19 Time Exam was Performed: 17:41 - Problem List & Annotations (1) Mycoplasma pneumonia SNOMED Code(s): 05755750 Code(s): J15.7 - PNEUMONIA DUE TO MYCOPLASMA PNEUMONIAE Status: Acute Current Visit: Yes (2) Acute hypoxemic respiratory failure SNOMED Code(s): 157980242 Code(s): J96.01 - ACUTE RESPIRATORY FAILURE WITH HYPOXIA Status: Acute Current Visit: Yes (3) UTI (urinary tract infection) SNOMED Code(s): 82575481 Code(s): N39.0 - URINARY TRACT INFECTION, SITE NOT SPECIFIED Status: Acute Current Visit: Yes (4) Bacteremia due to Gram-negative bacteria SNOMED Code(s): 516360722412 Code(s): R78.81 - BACTEREMIA Status: Acute Current Visit: Yes (5) Hypophosphatemia SNOMED Code(s): 3168437 Code(s): E83.39 - OTHER DISORDERS OF PHOSPHORUS METABOLISM Status: Acute Current Visit: Yes (6) Hypoalbuminemia SNOMED Code(s): 401281357 Code(s): E88.09 - OTH DISORDERS OF PLASMA-PROTEIN METABOLISM, NEC Status: Acute Current Visit: Yes (7) Suspected COVID-19 virus infection SNOMED Code(s): 830563855 Code(s): Z20.828 - CONTACT W AND EXPOSURE TO OTH VIRAL COMMUNICABLE DISEASES Status: Acute Current Visit: Yes (8) Volume depletion SNOMED Code(s): 743264451 Code(s): E86.9 - VOLUME DEPLETION, UNSPECIFIED Status: Acute Current Visit: Yes - Problem List Review Problem List Initiated/Reviewed/Updated: Yes - Plan Plan:: ASSESSMENT Day of Admission - Patient came in with worsening cough, shortness of breath and fevers for 3 days as well as diarrhea - Brought via EMS, describes cyanotic lips, upon EMS arrival he was placed on nonrebreather mask - Temperature on admission of 102.2, heart rate 141, respiratory rate 31, saturating 100% on 15 L, blood pressure 100/69 - Labs with: - Leukocytopenia with slight toxic granulation as well as lymphopenia - Elevated d-dimer - Total bilirubin 3.5 - CRP 9.4 - Albumin 3.1 - Met sepsis criteria however thought to have viral infection for which sepsis alert was not called - Chest X-ray within normal limits - Elevated d-dimer--> CT angiogram of the chest without pulmonary emboli, bibasilar atelectasis and posterior dependent atelectasis otherwise clear with no acute parenchymal changes - Admitted with maximum isolation precautions with Doxycycline, Rocephin and hydroxychloroquine Day 1 - Upon further interrogation endorsed painful and difficult urination--> UA--> positive - 2 negative COVID tests (rapid and normal) - Blood cultures reported 1/4 with gram negative rods at 12h--> Changed Rocephin to Zosyn - New fever spike of 102.7 in PM --> repeat blood cultures - Lactic acid ordered and negative - Procalcitonin ordered - Tachycardic up till 3AM then HR trend 72-93 - O2 Sat > 95% on 0.5LPM via NC - PO4 2.5 PLAN BY PROBLEM Mycoplasma pneumonia Acute hypoxemic respiratory failure - Discontinue maximum isolation but continue droplet isolation - Discontinue Plaquenil - Continue Doxycycline UTI (urinary tract infection) Bacteremia due to Gram-negative bacteria - Echocardiogram today - F/U Urine culture - Continue Zosyn - Repeat blood cultures in AM Hypophosphatemia - Replace with NaPO4 30Mmol - Repeat in AM Hypoalbuminemia - Malnutrition screen by dietary Suspected COVID-19 virus infection, ruled out - Discontinue Plaquenil - Discontinue maximum isolation precautions Volume depletion, resolved - Discontinue IV fluids - Continue to monitor VS PROPHYLAXIS DVT- Lovenox GI-not indicated CODE STATUS: FULL CODE DISPOSITION: Patient admitted with concern for COVID which has been ruled out, shortness of breath 2/2 pneumonia 2/2 mycoplasma, bacteremia 2/2 gram negative rods with echocardiogram to be performed today. Patient will need to be off O2 supplementation, afebrile for 24h and with negative blood cultures before discharge. LOS 2-3 days
[2019-06-13] MEDS: Doxycycline 100 MG in Sodium Chloride 0.9% 100 ML IV SCH (04:03)
[2019-06-13] MEDS: Piperacillin/Tazobactam 4.5 GM in Sodium Chloride 0.9% 100 ML IV SCH (05:04)
[2019-06-13] MEDS: Enoxaparin 40 MG/0.4 ML Syringe SUBCUT SCH (08:14)
--- NOTE | 2019-06-13 12:58 | PCM.PN ---
- General Info Date of Service: 06/13/19 Subjective Update: Feels a lot better Slept great Tolerating diet Ambulating No shortness of breath or any other complaints - Patient Data Vitals - Most Recent: Last Vital Signs Temp 97.7 F 06/13/19 12:08 Pulse 66 06/13/19 12:08 Resp 16 06/13/19 12:08 BP 129/79 06/13/19 12:08 Pulse Ox 99 06/13/19 12:08 Weight - Most Recent: 84.051 kg - Exam General: Alert, Oriented, Cooperative, No Acute Distress HEENT: Pupils Equal, Pupils Reactive, EOMI, Mucous Membr. Moist/[place] Neck: Supple, Trachea Midline, No JVD, No Thyromegaly, +2 Carotid Pulse wo Bruit. No: Lymphadenopathy Lungs: Clear to Auscultation, Normal Respiratory Effort. No: Crackles, Rales, Rhonchi, Rub, Stridor, Wheezing Cardiovascular: Regular Rate, Regular Rhythm. No: Murmurs, Gallops, Rubs GI/Abdominal Exam: Normal Bowel Sounds, Soft, Non-Tender. No: Distended, Guarding, Rigid, Rebound Back Exam: Normal Inspection, Full Range of Motion Extremities: Normal Inspection, Normal Range of Motion, Non-Tender, No Pedal Edema, Normal Capillary Refill Neurological: No New Focal Deficit Psy/Mental Status: Alert Sepsis Event Note - Evaluation Sepsis Screening Result: No Definite Risk - Focused Exam Vital Signs: Vital Signs Temp Pulse Resp BP Pulse Ox 06/13/19 12:08 97.7 F 66 16 129/79 99 06/13/19 07:32 98.4 F 67 20 103/78 96 06/13/19 04:10 98.2 F 73 16 114/77 97 Date Exam was Performed: 06/13/19 Time Exam was Performed: 18:17 - Problem List & Annotations (1) Mycoplasma pneumonia SNOMED Code(s): 13291703 Code(s): J15.7 - PNEUMONIA DUE TO MYCOPLASMA PNEUMONIAE Status: Acute Current Visit: Yes (2) Acute hypoxemic respiratory failure SNOMED Code(s): 190694167 Code(s): J96.01 - ACUTE RESPIRATORY FAILURE WITH HYPOXIA Status: Acute Current Visit: Yes (3) UTI (urinary tract infection) SNOMED Code(s): 43536494 Code(s): N39.0 - URINARY TRACT INFECTION, SITE NOT SPECIFIED Status: Acute Current Visit: Yes (4) Bacteremia due to Gram-negative bacteria SNOMED Code(s): 080227622613 Code(s): R78.81 - BACTEREMIA Status: Acute Current Visit: Yes (5) Hypophosphatemia SNOMED Code(s): 7686671 Code(s): E83.39 - OTHER DISORDERS OF PHOSPHORUS METABOLISM Status: Acute Current Visit: Yes (6) Hypoalbuminemia SNOMED Code(s): 361727426 Code(s): E88.09 - OTH DISORDERS OF PLASMA-PROTEIN METABOLISM, NEC Status: Acute Current Visit: Yes (7) Suspected COVID-19 virus infection SNOMED Code(s): 444216541 Code(s): Z20.828 - CONTACT W AND EXPOSURE TO OT VIRAL COMMUNICABLE DISEASES Status: Acute Current Visit: Yes (8) Volume depletion SNOMED Code(s): 095669595 Code(s): E86.9 - VOLUME DEPLETION, UNSPECIFIED Status: Acute Current Visit: Yes (9) Bacteremia due to Escherichia coli SNOMED Code(s): 012080358955 Code(s): R78.81 - BACTEREMIA; B96.20 - UNSP ESCHERICHIA COLI THE CAUSE OF DISEASES CLASSD ELSWHR Status: Acute Current Visit: Yes - Problem List Review Problem List Initiated/Reviewed/Updated: Yes - Plan Plan:: ASSESSMENT Day of Admission - Patient came in with worsening cough, shortness of breath and fevers for 3 days as well as diarrhea - Brought via EMS, describes cyanotic lips, upon EMS arrival he was placed on nonrebreather mask - Temperature on admission of 102.2, heart rate 141, respiratory rate 31, saturating 100% on 15 L, blood pressure 100/69 - Labs with: - Leukocytopenia with slight toxic granulation as well as lymphopenia - Elevated d-dimer - Total bilirubin 3.5 - CRP 9.4 - Albumin 3.1 - Met sepsis criteria however thought to have viral infection for which sepsis alert was not called - Chest X-ray within normal limits - Elevated d-dimer--> CT angiogram of the chest without pulmonary emboli, bibasilar atelectasis and posterior dependent atelectasis otherwise clear with no acute parenchymal changes - Admitted with maximum isolation precautions with Doxycycline, Rocephin and hydroxychloroquine Day 1 - Upon further interrogation endorsed painful and difficult urination--> UA--> positive - 2 negative COVID tests (rapid and normal) - Blood cultures reported / with gram negative rods at 12h--> Changed Rocephin to Zosyn - New fever spike of 102.7 in PM --> repeat blood cultures - Lactic acid ordered and negative - Procalcitonin ordered - Tachycardic up till 3AM then HR trend 72-93 - O2 Sat > 95% on 0.5LPM via NC - PO4 2.5 Day 2 - T max 98.6, afebrile since 06/09 at 1800 - Procalcitonin trending down form admission - Blood cultures finalized with pansensitive E. coli - Significant clinical improvement - VS stable - No hypoxemia for > 48h - ATB day 3 PLAN BY PROBLEM Mycoplasma pneumonia Acute hypoxemic respiratory failure - Switch doxycycline to PO - Monitor VS - Continue droplet isolation UTI (urinary tract infection) Bacteremia due E. coli - F/U echocardiogram results - F/U Urine culture - D/C Zosyn - Start Rocephin - F/U cultures Hypoalbuminemia - Malnutrition screen by dietary Suspected COVID-19 virus infection, ruled out Volume depletion, resolved Hypophosphatemia, resolved PROPHYLAXIS DVT- Lovenox GI-not indicated CODE STATUS: FULL CODE DISPOSITION: Patient admitted with concern for COVID which has been ruled out, shortness of breath 2/2 pneumonia 2/2 mycoplasma, bacteremia 2/2 E. coli. Afebrile > 24h, clinically improving, pending echocardiogram result. LOS 1-2 days
[2019-06-13] MEDS ORDERED: cefTRIAXone 2 GM in Sodium Chloride 0.9% 100 ML IV SCH (13:00)
--- NOTE | 2019-06-13 15:16 | PCM.PN ---
- General Info Date of Service: 06/12/19 - Patient Data Weight - Most Recent: 84.051 kg Sepsis Event Note - Evaluation Sepsis Screening Result: No Definite Risk - Focused Exam Vital Signs: Vital Signs Temp Pulse Resp BP Pulse Ox 06/13/19 12:08 97.7 F 66 16 129/79 99 06/13/19 07:32 98.4 F 67 20 103/78 96 06/13/19 04:10 98.2 F 73 16 114/77 97 Date Exam was Performed: 06/13/19 Time Exam was Performed: 15:15 - Problem List & Annotations (1) Mycoplasma pneumonia SNOMED Code(s): 25153415 Code(s): J15.7 - PNEUMONIA DUE TO MYCOPLASMA PNEUMONIAE Status: Acute Current Visit: Yes (2) Acute hypoxemic respiratory failure SNOMED Code(s): 908803726 Code(s): J96.01 - ACUTE RESPIRATORY FAILURE WITH HYPOXIA Status: Acute Current Visit: Yes (3) UTI (urinary tract infection) SNOMED Code(s): 36024640 Code(s): N39.0 - URINARY TRACT INFECTION, SITE NOT SPECIFIED Status: Acute Current Visit: Yes (4) Bacteremia due to Gram-negative bacteria SNOMED Code(s): 158023861599 Code(s): R78.81 - BACTEREMIA Status: Acute Current Visit: Yes (5) Hypophosphatemia SNOMED Code(s): 1043148 Code(s): E83.39 - OTHER DISORDERS OF PHOSPHORUS METABOLISM Status: Acute Current Visit: Yes (6) Hypoalbuminemia SNOMED Code(s): 871389416 Code(s): E88.09 - OTH DISORDERS OF PLASMA-PROTEIN METABOLISM, NEC Status: Acute Current Visit: Yes (7) Suspected COVID-19 virus infection SNOMED Code(s): 351223315 Code(s): Z20.828 - CONTACT W AND EXPOSURE TO OTH VIRAL COMMUNICABLE DISEASES Status: Acute Current Visit: Yes (8) Volume depletion SNOMED Code(s): 957686742 Code(s): E86.9 - VOLUME DEPLETION, UNSPECIFIED Status: Acute Current Visit: Yes - My Orders Last 24 Hours: My Active Orders 06/13/19 09:00 Enoxaparin [Lovenox] 40 mg SUBCUT Q24H 06/13/19 09:17 Blood Culture x2 Reflex Set [OM.PC] Stat 06/13/19 09:35 CULTURE BLOOD [BC] Stat 06/13/19 09:43 CULTURE BLOOD [BC] Stat 06/13/19 13:00 cefTRIAXone [Rocephin] 2 gm Sodium Chloride 0.9% [Normal Saline] 100 ml IV Q24H 06/13/19 17:00 Doxycycline [Vibramycin] 100 mg PO Q12H 06/14/19 07:30 PROCALCITONIN [REF] Q48H - Plan Plan:: Patient without significant past medical history who is brought to the ED via EMS for worsening shortness of breath with associated cough, fever and diarrhea previously seen in outpatient setting and tested for COVID, pending. Febrile in ED Negative CXR but CTA with bibasilar atelectasis, negative for PE Leukocytopenia, elevated DD and CRP Decreased air entry on bases on physical exam Endorsed dysuria and difficulty voiding prior PLAN - Repeat COVID test - UA with urine culture if needed - Procalcitonin - Maximum isolation precautions - Trend temperature and panculture if febrile - Mycoplasma and strep. pneumoniae serology - Plaquenil, Doxycycline and Rocephin - O2 via NC, taper down as tolerated
[2019-06-13] MEDS: Doxycycline 100 MG Cap PO SCH (15:59)
[2019-06-14] MEDS: Acetaminophen 325 MG Tab PO PRN (01:23)
[2019-06-14] MEDS: Doxycycline 100 MG Cap PO SCH (04:04)
[2019-06-14 04:58] VITALS: PULSE 72
--- NOTE | 2019-06-14 08:28 | PCM.DCSUM1 ---
Discharge Summary - Hospital Course Diagnosis: Stroke: No - Discharge Data Discharge Date: 06/14/19 Discharge Disposition: Home, Self-Care 01 Condition: Good - Discharge Diagnosis/Problem(s) (1) Mycoplasma pneumonia SNOMED Code(s): 48897285 ICD Code: J15.7 - PNEUMONIA DUE TO MYCOPLASMA PNEUMONIAE Status: Acute Current Visit: Yes (2) Acute hypoxemic respiratory failure SNOMED Code(s): 722017870 ICD Code: J96.01 - ACUTE RESPIRATORY FAILURE WITH HYPOXIA Status: Acute Current Visit: Yes (3) UTI (urinary tract infection) SNOMED Code(s): 00880365 ICD Code: N39.0 - URINARY TRACT INFECTION, SITE NOT SPECIFIED Status: Acute Current Visit: Yes (4) Bacteremia due to Gram-negative bacteria SNOMED Code(s): 613465030299 ICD Code: R78.81 - BACTEREMIA Status: Acute Current Visit: Yes (5) Hypophosphatemia SNOMED Code(s): 2494998 ICD Code: E83.39 - OTHER DISORDERS OF PHOSPHORUS METABOLISM Status: Acute Current Visit: Yes (6) Hypoalbuminemia SNOMED Code(s): 904610415 ICD Code: E88.09 - OTH DISORDERS OF PLASMA-PROTEIN METABOLISM, NEC Status: Acute Current Visit: Yes (7) Suspected COVID-19 virus infection SNOMED Code(s): 674529412 ICD Code: Z20.828 - CONTACT W AND EXPOSURE TO OTH VIRAL COMMUNICABLE DISEASES Status: Acute Current Visit: Yes (8) Volume depletion SNOMED Code(s): 797871412 ICD Code: E86.9 - VOLUME DEPLETION, UNSPECIFIED Status: Acute Current Visit: Yes (9) Bacteremia due to Escherichia coli SNOMED Code(s): 654290748186 ICD Code: R78.81 - BACTEREMIA; B96.20 - UNSP ESCHERICHIA COLI THE CAUSE OF DISEASES CLASSD ELSWHR Status: Acute Current Visit: Yes - Patient Summary/Data Labs Pending at D/C: Blood cultures Hospital Course: ASSESSMENT Day of Admission - Patient came in with worsening cough, shortness of breath and fevers for 3 days as well as diarrhea - Brought via EMS, describes cyanotic lips, upon EMS arrival he was placed on nonrebreather mask - Temperature on admission of 102.2, heart rate 141, respiratory rate 31, saturating 100% on 15 L, blood pressure 100/69 - Labs with: - Leukocytopenia with slight toxic granulation as well as lymphopenia - Elevated d-dimer - Total bilirubin 3.5 - CRP 9.4 - Albumin 3.1 - Met sepsis criteria however thought to have viral infection for which sepsis alert was not called - Chest X-ray within normal limits - Elevated d-dimer--> CT angiogram of the chest without pulmonary emboli, bibasilar atelectasis and posterior dependent atelectasis otherwise clear with no acute parenchymal changes - Admitted with maximum isolation precautions with Doxycycline, Rocephin and hydroxychloroquine Day 1 - Upon further interrogation endorsed painful and difficult urination--> UA--> positive - 2 negative COVID tests (rapid and normal) - Blood cultures reported 02/15 with gram negative rods at 12h--> Changed Rocephin to Zosyn - New fever spike of 102.7 in PM --> repeat blood cultures - Lactic acid ordered and negative - Procalcitonin ordered - Tachycardic up till 3AM then HR trend 72-93 - O2 Sat > 95% on 0.5LPM via NC - PO4 2.5 Day 2 - T max 98.6, afebrile since 06/09 at 1800 - Procalcitonin trending down form admission - Blood cultures finalized with pansensitive E. coli - Significant clinical improvement - VS stable - No hypoxemia for > 48h - ATB day 3 Day 3 - No fever spikes - Labs within normal limits - Vital signs stable - Transitioned to PO Doxycycline - Switched Zosyn back to Rocephin - None of follow up cultures grew anything so far - Echocardiogram negative for endocarditis Discharge - To follow up with PCP in the next 7-10 days - Complete 5 days of doxycycline - Complete 7 days of bacteremia coverage which was transitioned to PO Keflex - Afebrile and no symptoms - Patient Instructions Diet: Usual Diet as Tolerated Activity: As Tolerated Notify Provider of: Fever - Discharge Plan *PRESCRIPTION DRUG MONITORING PROGRAM REVIEWED*: Not Applicable *COPY OF PRESCRIPTION DRUG MONITORING REPORT IN PATIENT PATY: Not Applicable Prescriptions/Med Rec: cephALEXin [Keflex] 500 mg PO QID #16 cap Doxycycline [Vibramycin] 100 mg PO Q12H #4 cap Home Medications: Home Meds Doxycycline [Vibramycin] 100 mg PO Q12H #4 cap 06/14/19 [Rx] cephALEXin [Keflex] 500 mg PO QID #16 cap 06/14/19 [Rx] Oxygen Therapy Mode: Room Air Patient Handouts: Hypoxia, Sepsis, Diagnosis, Adult Forms: ED Department Discharge Referrals: Sharon Lugo, [employer] [Nurse Practitioner] - (Please call and schedule an apt. with Sharon Lugo in 7 days. ) - Discharge Summary/Plan Comment DC Time >30 min.: Yes - General Info Date of Service: 06/14/19 Subjective Update: Feeling ok Tolerating diet Ambulating without any problems No other symptoms - Patient Data Vitals - Most Recent: Last Vital Signs Temp 97.9 F 06/14/19 04:02 Pulse 72 06/14/19 04:02 Resp 18 06/14/19 04:02 BP 112/72 06/14/19 04:02 Pulse Ox 97 06/14/19 04:02 Weight - Most Recent: 83.688 kg BRANDI Results - Last 24 hrs: Microbiology 06/11/19 02:19 Aerobic Blood Culture - Preliminary Blood - Venous - Lab Draw NO GROWTH AFTER 3 DAYS Anaerobic Blood Culture - Preliminary Escherichia Coli 06/11/19 02:09 Aerobic Blood Culture - Final Blood - Venous Escherichia Coli Anaerobic Blood Culture - Preliminary NO GROWTH AFTER 3 DAYS 06/11/19 18:03 Aerobic Blood Culture - Preliminary Blood - Venous - Lab Draw NO GROWTH AFTER 2 DAYS Anaerobic Blood Culture - Final 06/11/19 17:37 Aerobic Blood Culture - Preliminary Blood NO GROWTH AFTER 2 DAYS Anaerobic Blood Culture - Preliminary NO GROWTH AFTER 2 DAYS 06/11/19 11:48 Quick Strep Confirmation Culture - Final Throat NEGATIVE FOR BETA STREP REFERENCE RANGE: NEGATIVE Group A Streptococcus Rapid Screen - Final NEGATIVE STREP A SCREEN REFERENCE RANGE: NEGATIVE 06/12/19 08:51 Aerobic Blood Culture - Preliminary Blood - Venous - Lab Draw NO GROWTH AFTER 1 DAY Anaerobic Blood Culture - Final 06/12/19 08:51 Aerobic Blood Culture - Preliminary Blood - Venous NO GROWTH AFTER 1 DAY Anaerobic Blood Culture - Preliminary NO GROWTH AFTER 1 DAY 06/11/19 15:11 Urine Culture - Preliminary Urine, Voided NO GROWTH AFTER 1 DAY AX - Exam General: Reports: Alert, Oriented, Cooperative, No Acute Distress HEENT: Reports: Pupils Equal, Pupils Reactive, EOMI, Mucous Membr. Moist/[place] Neck: Reports: Supple, Trachea Midline, No JVD, No Thyromegaly, +2 Carotid Pulse wo Bruit. Denies: Lymphadenopathy Lungs: Reports: Clear to Auscultation, Normal Respiratory Effort. Denies: Crackles, Rales, Rhonchi, Rub, Stridor, Wheezing Cardiovascular: Reports: Regular Rate, Regular Rhythm. Denies: Murmurs, Gallops , Rubs GI/Abdominal Exam: Normal Bowel Sounds, Soft, Non-Tender, No Organomegaly, No Distention Back Exam: Reports: Normal Inspection, Full Range of Motion. Denies: CVA Tenderness (L), CVA Tenderness (R) Extremities: Normal Inspection, Normal Range of Motion, Non-Tender, No Pedal Edema, Normal Capillary Refill Skin: Reports: Warm, Dry Neurological: Reports: No New Focal Deficit Psy/Mental Status: Reports: Alert, Normal Affect, Normal Mood
[2019-06-14] MEDS: Enoxaparin 40 MG/0.4 ML Syringe SUBCUT SCH (09:01)
[2019-06-14 09:47] VITALS: BP 123/84
[2019-06-14] MEDS ORDERED: FLU Vacc QS2019-20(6MOS+)/PF 60 MCG/0.5 ML SYRINGE IM ONE (10:15)
[2019-06-14] MEDS ORDERED: Cephalexin 500 MG Cap PO SCH (13:00)
== END 2019-06-14 11:30 | disposition home or self-care (01) | DRG 139 ==
LOC: JD.ED 01:09 → JD.MS 04:23
PROVIDERS: ADMIT Family Medicine; ATTEND Internal Medicine
PROC: 8E0ZXY6 Isolation (ICD-10-PCS; principal; 2019-06-11)
DX: J15.7 Pneumonia due to Mycoplasma pneumoniae (principal); J96.01 Acute respiratory failure with hypoxia; N39.0 Urinary tract infection, site not specified; E83.39 Other disorders of phosphorus metabolism; Z20.828 Contact with and (suspected) exposure to other viral communicable diseases; R78.81 Bacteremia; B96.20 Unspecified Escherichia coli [E. coli] as the cause of diseases classified elsewhere; H54.7 Unspecified visual loss; E78.00 Pure hypercholesterolemia, unspecified; M19.90 Unspecified osteoarthritis, unspecified site; E86.0 Dehydration; Z90.49 Acquired absence of other specified parts of digestive tract
CPT/HCPCS: 36415; 71045; 71045-26; 71275; 71275-26; 80053; 81001; 82550; 82728; 83605; 83615; 83735; 84100; 84145; 85007; 85025; 85027; 85379; 86140; 86738; 87040; 87077; 87081; 87086; 87186; 87430; 87804; 90686; 93005; 93010; 93306; 96360; 96361; 99223; 99232; 99239; 99285; 99285-25; A9270-GY; G0008; J0696; J1650; J2543; J3490; J7030; J7050; J7120; U0002

== ENCOUNTER 2019-07-21 08:38 | Day surgery (SDC) | payer BC, OTHER ==
[~2019-07-21 08:38] MED LIST changes: -Lidocaine 1% 4 ML ONE; +Lidocaine 1%/Sod Bicarbonate in NS 8.4% 1 ML Syringe IDERM PRN; -Lidocaine 1%/Sod Bicarbonate in NS 8.4% 1 ML Syringe IV PRN; -Propofol 200 MG/20 ML SDV ONE; -fentaNYL 250 MCG/5 ML SDV ONE
--- NOTE | 2019-07-21 09:44 | PCM.PREANE ---
Preanesthetic Assessment - Anesthesia/Transfusion/Family Hx Anesthesia History: Prior Anesthesia Without Reaction Family History of Anesthesia Reaction: No Transfusion History: No Prior Transfusion(s) Intubation History: Unknown - Review of Systems General: No Symptoms Pulmonary: No Symptoms Cardiovascular: No Symptoms Gastrointestinal: No Symptoms Neurological: No Symptoms - Physical Assessment NPO Status Date: 07/20/19 NPO Status Time: 21:00 Vital Signs: Last Vital Signs Temp 36.5 C 07/21/19 08:35 Pulse 56 L 07/21/19 08:35 Resp 16 07/21/19 08:35 BP 125/81 07/21/19 08:35 Pulse Ox 99 07/21/19 08:35 Height: 1.78 m Weight: 81.647 kg ASA Class: 2 Mental Status: Alert & Oriented x3 Airway Class: Mallampati = 1 Dentition: Reports: Normal Dentition Thyro-Mental Finger Breadths: 3 Mouth Opening Finger Breadths: 3 ROM/Head Extension: Full Lungs: Clear to Auscultation, Normal Respiratory Effort Cardiovascular: Regular Rate, Regular Rhythm - Lab Values: Laboratory Last Values SARS Virus RNA (PCR) Negative (NEGATIVE) 07/18/19 12:57 - Allergies Allergies/Adverse Reactions: Allergies Allergy/AdvReac Type Severity Reaction Status Date / Time No Known Allergies Allergy Verified 07/20/19 11:11 - Acknowledgements Anesthesia Type Planned: MAC Pt an Appropriate Candidate for the Planned Anesthesia: Yes Alternatives and Risks of Anesthesia Discussed w Pt/Guardian: Yes Pt/Guardian Understands and Agrees with Anesthesia Plan: Yes PreAnesthesia Questionnaire HEENT History: Reports: Allergic Rhinitis, Impaired Vision, Other (See Below) Other HEENT History: states wears reading glasses, they are at home. Cardiovascular History: Reports: High Cholesterol Respiratory History: Reports: None Gastrointestinal History: Reports: GERD, Other (See Below) Other Gastrointestinal History: chronic groin pain, duodenitis, dysphagia, anal fissure, elevated bilirubin Genitourinary History: Other Genitourinary History: prostatitis, left testicular pain [employer]TE[employer] WORK[employer] History: Reports: None Musculoskeletal History: Reports: Arthritis, Other (See Below) Other Musculoskeletal History: elbow pain, lumbar back pain, back spasms, hip pain Neurological History: Reports: None Psychiatric History: Reports: None Endocrine/Metabolic History: Reports: None Hematologic History: Reports: Other (See Below) Other Hematologic History: elevated bilirubin, elevated hemoglobin, elevated LDL Immunologic History: Reports: None Oncologic (Cancer) History: Reports: None Dermatologic History: Reports: Other (See Below) Other Dermatologic History: folliculitis - Infectious Disease History Infectious Disease History: Reports: None - Past Surgical History Head Surgeries/Procedures: Reports: None Cardiovascular Surgical History: Reports: None Respiratory Surgical History: Reports: None GI Surgical History: Reports: Cholecystectomy, Colonoscopy, Hernia, Inguinal Female Surgical History: Reports: None Male Surgical History: Reports: None Endocrine Surgical History: Reports: None Neurological Surgical History: Reports: None Musculoskeletal Surgical History: Reports: Knee Replacement, Other (See Below) Other Musculoskeletal Surgeries/Procedures:: R knee reconstruction, artificial joint in R thumb Oncologic Surgical History: Reports: None Dermatological Surgical History: Reports: None - SUBSTANCE USE Smoking Status *Q: Unknown Ever Smoked - HOME MEDS Home Medications: Home Meds Pantoprazole Sodium [Protonix] 40 mg PO DAILY 07/20/19 [History] atorvaSTATin Calcium [Atorvastatin Calcium] 20 mg PO DAILY 07/20/19 [History] - CURRENT (IN HOUSE) MEDS Current Meds: Current Medications Lactated Ringer's (Ringers, Lactated) 1,000 mls @ 125 mls/hr IV ASDIRECTED SANDRA Stop: 07/21/19 23:00 Last Admin: 07/21/19 08:50 Dose: 125 mls/hr Lidocaine/Sodium Bicarbonate (Buffered Lidocaine 1% In Ns 8.4%) 0.25 ml IDERM ONETIME PRN PRN Reason: Prior to IV Start Stop: 07/21/19 23:00 Last Admin: 07/21/19 08:50 Dose: 0.25 ml Sodium Chloride (Saline Flush) 10 ml FLUSH ASDIRECTED PRN PRN Reason: Keep Vein Open Stop: 07/21/19 23:00
[2019-07-21] MEDS ORDERED: Propofol 200 MG/20 ML SDV ONE (09:52)
[2019-07-21] MEDS ORDERED: Lidocaine 1% 4 ML ONE (09:52)
--- NOTE | 2019-07-21 10:21 | PCM48HPAN ---
Post Anesthesia Note - EVALUATION WITHIN 48HRS OF ANESTHETIC Vital Signs in Normal Range: Yes Patient Participated in Evaluation: Yes Respiratory Function Stable: Yes Airway Patent: Yes Cardiovascular Function Stable: Yes Hydration Status Stable: Yes Pain Control Satisfactory: Yes Nausea and Vomiting Control Satisfactory: Yes Mental Status Recovered: Yes Vital Signs: Last Vital Signs Temp 36.5 C 07/21/19 08:35 Pulse 56 L 07/21/19 08:35 Resp 16 07/21/19 08:35 BP 125/81 07/21/19 08:35 Pulse Ox 99 07/21/19 08:35
--- NOTE | 2019-07-21 10:23 | PCM.PRNOTE ---
- Free Text/Narrative Note: Date: 07/21/2019 Procedure: diagnostic esophagogastroduodenoscopy Endoscopist: Mikel Fuentes MD Findings: no gross abnormality. Detailed Report: The patient was taken to the endoscopy suite and placed in left lateral decubitus position. Time out was performed and monitored sedation initiated. A bite block was placed and the endoscope was inserted orally. THe scope was advanced with ease to the second portion of the duodenum. The duodenum appeared normal. A sample mucosal biopsy was obtained. The pylorus, incisura, body, and fundus appeared normal. There was no hiatal hernia appreciated. A sample was taken from the antrum. The Z-line appeared normal. A sample of distal esophageal mucosa was biopsied. The esophagus appeared normal, with no lesions noted along its length. Air was suction and the scope completely withdrawn. The patient tolerated the procedure well. Mikel Fuentes MD General Surgery
[2019-07-21 11:20] VITALS: BP 112/75; PULSE 59
== END 2019-07-21 10:57 | disposition home or self-care (01) ==
LOC: JD.SDS 08:38
PROVIDERS: ATTEND Surgery
DX: K29.50 Unspecified chronic gastritis without bleeding (principal); K29.80 Duodenitis without bleeding; K21.0 Gastro-esophageal reflux disease with esophagitis; Z11.59 Encounter for screening for other viral diseases; E78.00 Pure hypercholesterolemia, unspecified; K21.9 Gastro-esophageal reflux disease without esophagitis; E78.5 Hyperlipidemia, unspecified; Z79.899 Other long term (current) drug therapy; Z98.890 Other specified postprocedural states
CPT/HCPCS: 43239; 87635; J2001; J2704; J7120; 00731; U0002